=== PATIENT | female | born 1955 | race Caucasian/White ===

== ENCOUNTER 2016-12-27 06:42 | Inpatient (IN) ==
[2016-12-27] MEDS ORDERED: Acetaminophen 325 MG TABLET PO PRN (10:24)
[2016-12-27] MEDS ORDERED: Naloxone 0.4 MG/ML INJ IVP PRN (10:24)
[2016-12-27] MEDS ORDERED: Dextrose Gel 15 GM PO PRN ×2 (11:36)
[2016-12-27] MEDS ORDERED: *HR* Dextrose 50 % in Water (Syg) 50 ML SYRINGE IVP PRN (11:36)
[2016-12-27] MEDS ORDERED: D5% in Water 1,000 ML IVC PRN (11:36)
--- NOTE | 2016-12-27 11:58 | Internal Med History&Physical ---
Date of Encounter: 12/27/16 Time of Encounter: 11:55 Assessment and Plan (1) Closed left hip fracture Current visit: Yes Status: Acute Patient had mechanical fall at home and reported left hip pain. CT from [facility] shows nondisplaced intertrochanteric fracture of left hip, no dislocation. Orthopedic surgery consulted, Dr. Peace to see patient and plans surgery this evening EKG and CXR for pre-op clearance. IV Morphine PRN for pain Zofran PRN for nausea Narcan PRN for respiratory depression. Qualifiers: Encounter type: initial encounter Qualified Code(s): S72.002A - Fracture of unspecified part of neck of left femur, initial encounter for closed fracture (2) Type 2 diabetes mellitus Current visit: Yes Status: Acute Check Hgb A1c Hold Tradjenta and metformin Check blood sugars Q6hr Hold her home dose of basal insulin tonight, and start it tomorrow once taking PO. (home dose is 30u HS) Sliding scale correction dose Q6hr hypoglycemic protocol. Qualifiers: Diabetes mellitus complication status: with neurologic complications Diabetes mellitus complication detail: with polyneuropathy Diabetes mellitus [facility] insulin use: with [facility] use Qualified Code(s): E11.42 - Type 2 diabetes mellitus with diabetic polyneuropathy; Z79.4 - intermediate frame tender (current) use of insulin (3) COPD (chronic obstructive pulmonary disease) Current visit: No Status: Chronic Patient with COPD. Long smoking history. Scattered mild wheezes on exam, patient not reporting any increased shortness of breath or cough budesonide/formoterol BID Spriva daily. duonebs QID Albuterol nebulizer Q2hr PRN titrate O2 to maintain saturation > 90% Qualifiers: COPD type: chronic bronchitis Chronic bronchitis type: simple Qualified Code(s): J41.0 - Simple chronic bronchitis (4) Smoker Current visit: Yes Status: Acute Patient continues to smoke approximately 3PPD despite COPD diagnosis. Discussed smoking cessation, patient not ready to quit. Smoking cessation education ordered. Nicotine patch. (5) DVT prophylaxis Current visit: No Status: Acute Sequential compression devices Heparin 5000u SQ TID Internal Medicine - H&P: HPI Chief complaint: left hip pain s/p fall Admitted From: Hospital to Hospital Transfer Plans for Post Hospital Care: Home History of present illness: Ms. Linares is a 61 year old female with type 2 diabetes, , Charcot foot, was transferred from [facility] [place] this morning after suffering a fall at home and complaining of left hip pain. Patient reports that she was trying to keep her dogs out of the bedroom and tripped over her own feet and fell on her left side. CT of the pelvis done at [facility] showed a nondisplaced intertrochanteric fracture of the left hip with no dislocation. Patient had previous orthopedic surgeries here and requested to be transferred to [facility]. Patient denies any lightheadedness, headache, syncopal event prior to fall, or currently. Patient denies any chest pain, shortness of breath, nausea , abdominal pain, diarrhea, increased numbness or tingling. On exam, patient drowsy but arousable. Heart had regular rate and rhythm. Lungs had mild scattered wheezes. Left foot was externally rotated rotated and deformed consistent with Charcot foot. She did have tenderness to her left hip on exam. Peripheral pulses were intact. Past Med Surg Social Fam HX - Past Medical History Medical history: arthritis, asthma, COPD, diabetes, hyperlipidemia, migraine, myocardial infarction Psychiatric history: no psych history - Past Surgical History Surgical History: appendectomy, cholecystectomy, knee replacement, other - Social History Smoking Status: Current every day smoker Packs per day: 2-3 Smokeless Tobacco Status: No Alcohol use: none Drug use: none - Family History Mother Living Status: Age at : 60 Cause of : Cancer Hx Family Cardiac Disorders: Yes Hx Family Respiratory Disorders: No Hx Family Cancer: Yes Hx Family GI Disorders: No Hx Family Endocrine Disorder: No Hx Family Neuromuscular Disorders: No Hx Family Neurologic Disorders: No Hx Family HEENT Disorders: No Hx Family Autoimmune Disorders: No Father Living Status: Cause of : [place] Hx Family Cardiac Disorders: Yes Internal Medicine - H&P: Meds Gabapentin [Neurontin] 800 mg PO TID 06/21/15 [History] Insulin Glargine [Lantus] 20 unit SQ HS 06/21/15 [History] Linagliptin [Tradjenta] 5 mg PO DAILY 06/21/15 [History] Metformin [Glucophage] 1,000 mg PO BID 06/21/15 [History] Tiotropium [Spiriva] 1 cap IH DAILY 06/21/15 [History] Aspirin Enteric Coated [Aspirin EC] 325 mg PO BID #60 tablet. 04/12/16 [Rx] Simvastatin [Zocor] 40 mg PO DAILY 04/12/16 [History] Albuterol Sulfate [Ventolin Hfa] 2 puff IH Q6H PRN 12/27/16 [History] Alendronate Sodium [Fosamax] 70 mg PO QWEEK 12/27/16 [History] Calcium Carbonate/Vitamin D3 [Calcium 500-Vit D3 200 Tablet] 1 tab PO BID [History] Fluticasone/Salmeterol [Advair 250-50 Diskus] 1 puff IH BID 12/27/16 [History] Allergies hydrocodone [From Vicodin] Adverse Reaction (Verified 04/12/16 09:53) Nausea All Systems PM: A 10-system review of systems was performed and is negative for pertinent findings except as documented above in the HPI. - Constitutional Constitutional: falls, no chills, no fever(s), no night sweats - EENT Eyes: no change in vision, no discharge, no pain, no photophobia Ears: no ear discharge, no ear pain, no tinnitus Nose, mouth and throat: no dysphagia, no nasal discharge, no neck pain, no sore throat - Cardiovascular Cardiovascular ROS IM: no chest pain, no diaphoresis, no dyspnea, no lightheadedness, no palpitations, no syncope - Respiratory Respiratory: no cough, no dyspnea, no wheezing, no excessive phlegm production - Gastrointestinal Gastrointestinal: no abdominal pain, no diarrhea, no hematemesis, no hematochezia, no melena, no nausea, no vomiting - Genitourinary Genitourinary: no change in urinary stream, no dysuria, no flank pain, no hematuria - Musculoskeletal Musculoskeletal ROS IM: deformity (left foot charcot), no numbness, no tingling Additional comments: pain in left hip - Integumentary Integumentary IM: no rash, no unusual bruising - Neurological Neurological ROS: no confusion, no convulsions, no focal weakness, no numbness, no tingling, no tremor(s) - Hematologic/Lymphatic Hematologic/Lymphatic: no easy bruising - Constitutional Vitals: Temp Pulse Resp BP Pulse Ox 98.7 F 90 20 121/71 94 12/27/16 10:15 12/27/16 10:15 12/27/16 10:15 12/27/16 10:15 12/27/16 10:16 General appearance: Present: A&O X 3, pleasant, no acute distress - Head Head exam: Present: atraumatic, normocephalic - Eye Eye exam: Present: PERRL, conjuntiva pink, sclera anicteric Pupils: Present: PERRL - Neck Neck exam general surgery: Present: supple, trachea midline. Absent: lymphadenopathy - Respiratory Respiratory exam: Present: wheezes. Absent: accessory muscle use, rales, rhonchi - Cardiovascular Cardiovascular exam: Present: RRR, +S1, +S2. Absent: diastolic murmur, gallop, rubs, systolic murmur - GI/Abdominal GI/Abdominal exam: Present: normal bowel sounds, soft, no peritoneal signs. Absent: distended, tenderness - Extremities Exam Extremities exam: Present: normal capillary refill, warm, radial pulses palpable and symetrical. Absent: calf tenderness, cyanotic, pedal edema Additional comments: Left foot externally rotated and deformed consistent with charcot foot. Tenderness of left hip. - Neurological Exam Neurological exam: Present: CN II-XII intact, oriented X3, no focal deficits. Absent: facial droop, speech deficit - Skin Skin exam: Present: dry, intact Internal Med - H&P Results - Labs Labs: Labs from [facility]: Hgb 14.9 Hct 43.1 WBC 10.5 PLt 201 Na 139 K 3.8 Cl 104 CO2 24 BUN 14 Cr 0.51 Glu 150 - Diagnostic Studies CT scan - pelvis Additional comments: CT of pelvis from [facility]: Impression: nondisplaced intertrochanteric fracture of left hip. No dislocation. Other Images Additional comments: Xray of pelvis and left hip from [facility]: Osteopenia, mild degenerative changes of both hips, no acute osseous injury.
[2016-12-27] MEDS ORDERED: Albuterol 2.5 MG/3 ML NEBULIZER IH PRN (12:17)
[2016-12-27] MEDS: Insulin LISPRO 300 UNITS/3 ML VIAL SQ SCH ×2 (12:38→18:50)
[2016-12-27] MEDS: Nicotine 21 MG PATCH.TD24 TD SCH (12:39)
--- NOTE | 2016-12-27 14:42 | Orthopedic Consult Note ---
Date of Encounter: 12/27/16 Time of Encounter: 14:40 Assessment and Plan (1) Hip fracture Current Visit: Yes Status: Acute I did discuss the diagnosis in great detail with the patient. She has a nondisplaced left basicervical femoral neck fracture. I did discuss treatment options and my recommendation was for internal fixation to stabilize the hip and allow for pain control, and to help facilitate nursing care. The risks discussed included but were not limited to stiffness, bleeding, infection, blood clots, damage to neurovascular structures, tendons, ligaments, and bone. Also discussed was the risk of continued symptoms and possible need for further procedures. I did discuss the anesthesia risks including stroke, heart attack, and . I also discussed the risk of malunion, nonunion, hardware failure, fracture at the distal portion of the implant, and the need for hardware removal. I also discussed the reasonable, foreseeable postoperative course with the patient. I explained this to the patient in simple terms and she wished to proceed and consent was obtained. We will plan on surgery later today pending medical clearance. Qualifiers: Qualified Code(s): S72.009A - Fracture of unspecified part of neck of unspecified femur, initial encounter for closed fracture History of Present Illness HPI: Ms. Linares is a 61 year old female with a history of diabetes and neuropathy and Charcot foot on the left. She also has COPD and coronary artery disease. She does have a history of a left tibial shaft fracture last winter which was managed nonoperatively in a cast and the patient had done reasonably well from this. Currently she is an unassisted community ambulator and lives independently with her boyfriend. Last night at about 2 in the morning she sustained a fall onto her left hip which was non-syncopal in nature. She said she lost her balance and fell. She was seen at [facility] where the diagnosis of a left hip fracture was made and the patient was transferred to our facility for definitive management. She complains of isolated pain to the left hip and groin region. She denies any headaches, neck pain, chest pain, abdominal pain, loss of consciousness, and she also denies bilateral upper extremity and right lower extremity pain. She denies any new numbness, tingling , or any other associated signs or symptoms. She does endorse her baseline diabetic neuropathy. Pain is worse with movement of the left leg and better at rest. No other modifying factors. Past Med Surg Social Fam HX - Past Medical History Medical history: arthritis, asthma, COPD, diabetes, hyperlipidemia, migraine, myocardial infarction Psychiatric history: no psych history - Past Surgical History Surgical History: appendectomy, cholecystectomy, knee replacement, other - Social History Smoking Status: Current every day smoker Packs per day: 2-3 Smokeless Tobacco Status: No Alcohol use: none Drug use: none - Family History Father Living Status: Cause of : [place] Hx Family Cardiac Disorders: Yes Mother Living Status: Age at : 60 Cause of : Cancer Hx Family Cardiac Disorders: Yes Hx Family Respiratory Disorders: No Hx Family Cancer: Yes Hx Family GI Disorders: No Hx Family Endocrine Disorder: No Hx Family Neuromuscular Disorders: No Hx Family Neurologic Disorders: No Hx Family HEENT Disorders: No Hx Family Autoimmune Disorders: No Medications and Allergies Gabapentin [Neurontin] 800 mg PO TID 06/21/15 [History] Insulin Glargine [Lantus] 20 unit SQ HS 06/21/15 [History] Linagliptin [Tradjenta] 5 mg PO DAILY 06/21/15 [History] Metformin [Glucophage] 1,000 mg PO BID 06/21/15 [History] Tiotropium [Spiriva] 1 cap IH DAILY 06/21/15 [History] Aspirin Enteric Coated [Aspirin EC] 325 mg PO BID #60 tablet. 04/12/16 [Rx] Simvastatin [Zocor] 40 mg PO DAILY 04/12/16 [History] Albuterol Sulfate [Ventolin Hfa] 2 puff IH Q6H PRN 12/27/16 [History] Alendronate Sodium [Fosamax] 70 mg PO QWEEK 12/27/16 [History] Calcium Carbonate/Vitamin D3 [Calcium 500-Vit D3 200 Tablet] 1 tab PO BID [History] Fluticasone/Salmeterol [Advair 250-50 Diskus] 1 puff IH BID 12/27/16 [History] Allergies hydrocodone [From Vicodin] Adverse Reaction (Verified 04/12/16 09:53) Nausea All Systems Reviewed: Constitutional and musculoskeletal systems were reviewed and are negative unless otherwise stated in history of present illness. Physical Exam - Constitutional Vitals: Temp Pulse Resp BP Pulse Ox 98.7 F 90 20 121/71 94 12/27/16 10:15 12/27/16 10:15 12/27/16 10:15 12/27/16 10:15 12/27/16 10:16 Constitutional -Vitals reviewed -The patient is well developed and well nourished. -Mood is pleasant. -The patient is well groomed. Psychiatric -The patient is fully alert and oriented x 3. Respiratory: -Respiratory effort normal Abdomen: -Soft abdomen -Non tender -Non distended: Left upper extremity: -No deformities. The overlying skin is intact. No obvious signs of acute trauma. -No tenderness to palpation throughout. -No significant pain with passive motion of the shoulder, elbow, wrist, and fingers within the limits of the bed. -Able to make an "OK" sign, cross the index and long fingers, and extend the thumb. -Sensation grossly intact to light touch throughout the median, radial, and ulnar distributions. -Radial pulse is present; Fingers have good capillary refill. Right upper extremity: -No deformities. The overlying skin is intact. No obvious signs of acute trauma. -No tenderness to palpation throughout. -No significant pain with passive motion of the shoulder, elbow, wrist, and fingers within the limits of the bed. -Able to make an "OK" sign, cross the index and long fingers, and extend the thumb. -Sensation grossly intact to light touch throughout the median, radial, and ulnar distributions. -Radial pulse is present; Fingers have good capillary refill. Left lower extremity: -No deformities. The overlying skin is intact. No obvious signs of acute trauma. -Tenderness over the proximal thigh and left groin region. -No tenderness over the distal thigh, knee, tib-fib, ankle, or toes. -No pain with passive motion of knee, ankle, and toes within the limits of the bed. -Any movement of the left thigh does cause significant groin pain. -Able to dorsiflex and plantarflex the ankle and toes. -Sensation loss over the left foot consistent with her diabetic neuropathy. -Toes have good capillary refill. Right lower extremity: -No deformities. The overlying skin is intact. No obvious signs of acute trauma. -No tenderness to palpation throughout. -No pain with passive motion of the hip, knee, ankle, and toes within the limits of the bed. -No pain with axial loading of the thigh. -Able to dorsiflex and plantarflex the ankle and toes. -Sensation loss over the left foot consistent with her diabetic neuropathy. -Toes have good capillary refill. Diagnostic Imaging: I did personally review and interpret x-rays of the left hip which do not show any definite fractures. CT scan of the left hip did show a nondisplaced basicervical femoral neck fracture. I did review x-rays of the left knee show a total knee implant in good position. X-rays of the tibia show that her nondisplaced fracture has healed nicely. Her Charcot ankle has been redemonstrated. Results - Labs Labs: Abnormal lab results POC Glucose 129 (58-89) H 12/27/16 12:38 Hemoglobin A1c 6.0 % (-5.6) H 12/27/16 12:12 All other labs normal. Consult Discharge Plan - Plan Referrals: Luis Eduardo Petit, CHANGE ANALYST [Primary Care Provider] -
--- NOTE | 2016-12-27 14:44 | Anesthesia Evaluation PreOp ---
<Concha Bains - Last Filed: 12/27/16 14:41> Date of Encounter: 12/27/16 Time of Encounter: 14:41 - Past History Planned Operation: L-Hip IM Nailing Cardiac History: Hyperlipidemia (maintained on Simvastatin), Other (06/18/2015 - LVEF >70%) Pulmonary History: Smoker (3ppd x 40yrs despite COPD diagnosis), Asthma, COPD ( maintained on Albuterol, Budesonide/Formoterol, DuoNebs, Advair) LEAD FRONT DESK AGENT History: Other (Diabetic Polyneuropathy managed on Gabapentin, Roxicodone) Other Medical History: Diabetes Type II (maintained on Spiriva, TRadjenta, Glucophage, Lantus), Other (Charcot Foot.) Anesthesia History: No Prior Anesthetic Complications, Past Anesthesia (Appy, Corinne, Knee replacement) Alcohol Use: none Drug use: none Medications and Allergies Gabapentin [Neurontin] 800 mg PO TID 06/21/15 [History] Insulin Glargine [Lantus] 20 unit SQ HS 06/21/15 [History] Linagliptin [Tradjenta] 5 mg PO DAILY 06/21/15 [History] Metformin [Glucophage] 1,000 mg PO BID 06/21/15 [History] Tiotropium [Spiriva] 1 cap IH DAILY 06/21/15 [History] Aspirin Enteric Coated [Aspirin EC] 325 mg PO BID #60 tablet. 04/12/16 [Rx] Simvastatin [Zocor] 40 mg PO DAILY 04/12/16 [History] Albuterol Sulfate [Ventolin Hfa] 2 puff IH Q6H PRN 12/27/16 [History] Alendronate Sodium [Fosamax] 70 mg PO QWEEK 12/27/16 [History] Calcium Carbonate/Vitamin D3 [Calcium 500-Vit D3 200 Tablet] 1 tab PO BID [History] Fluticasone/Salmeterol [Advair 250-50 Diskus] 1 puff IH BID 12/27/16 [History] Allergies hydrocodone [From Vicodin] Adverse Reaction (Verified 04/12/16 09:53) Nausea - Meds/Allergy Pre-op Review Medications Reviewed: Yes Allergies Reviewed: Yes Beta Blockers on Current Med List: No Anesthesia Results - Labs Laboratory Tests 12/27/16 12/27/16 12:12 12:38 POC Glucose 129 H Est Mean Plasma Glucose 126 Hemoglobin A1c 6.0 H Anesthesia Exam Vital Signs Temp Pulse Resp BP Pulse Ox 12/27/16 10:16 94 12/27/16 10:15 98.7 F 90 20 121/71 95 Intake and Output 12/26/16 12/27/16 12/27/16 23:59 07:59 15:59 Output Total 1250 / 1250 Balance -1250 / -1250 Output: Catheter 1250 / 1250 Other: Weight 87.8 kg Blood Glucose* 129 Patient Weight 12/27/16 23:59 Weight 87.8 kg - HEENT Pupil (Motor): Pupils equal, EOMI Oral Opening: Greater than 3 - LEAD [employer]ONT DESK AGENT LOC: Oriented LEAD [employer] DESK AGENT Motor: Normal RUE, Normal LUE, Normal RLE, Normal LLE, Normal Face LE[employer] DESK [employer]ENT Sensory: Normal: RUE, LUE, RLE, LLE, Face - Cardiac Rhythm: Regular Murmur: None - Pulmonary Breath Sounds: bilateral Clear Respiratory Effort: Symmetrical Anesthesia Assess/Plan ASA Score: 3 (COPD, Smoker, DM, Chol) Modified [place] Scale for Level of Consciousness: Cooperative, oriented, and tranquil Anesthetic Plan: General Monitoring Plan: Standard Monitors Recovery Plan: PACU <Graeme Abdullahi - Last Filed: 12/27/16 15:53> Date of Encounter: 12/27/16 - Past History : No Anesthesia Results - Imaging EKG: image reviewed (SR, poss inf SC) Anesthesia Exam Height: 5'5'' Weight: 193# NPO (# of Hours): > 8 hrs Pain Scale: 0 Pain Scale Used: Numeric (1 - 10) - HEENT Pupil (Motor): Pupils equal, EOMI Mallampati: II Teeth: Missing Denture Type: Upper: Complete - LEAD FRONT DESK AGENT LEAD FRONT DESK AGENT Motor: Normal RUE, Normal LUE, Normal RLE, Normal LLE, Normal Face LE[employer] FR[employer] DESK AGENT Sensory: Normal: RUE, LUE, RLE, LLE, Face - Cardiac JVD: No Carotid Bruit: No - Pulmonary Breath Sounds: bilateral Clear Respiratory Effort: Symmetrical
[2016-12-27] MEDS ORDERED: *HR* FentaNYL (PF) 100 MCG/2 ML VIAL ONE (15:42)
[2016-12-27] MEDS ORDERED: *HR* Propofol 200 MG/20 ML VIAL IVP ONE (15:43)
[2016-12-27] MEDS ORDERED: *HR* Heparin 5,000 UNIT/ML VIAL SQ SCH (16:00)
[2016-12-27] MEDS ORDERED: Lidocaine -MPF 4% 5 ML AMPUL ONE (16:05)
[2016-12-27] MEDS ORDERED: *HR* Succinylcholine 200 MG/10 ML VIAL IVP ONE (16:05)
[2016-12-27] MEDS: Ipratropium/Albuterol Neb 3 ML IH SCH ×2 (16:29→23:07)
[2016-12-27] MEDS ORDERED: Ondansetron 4 MG/2 ML VIAL IVP PRN (16:47)
[2016-12-27] MEDS ORDERED: Ondansetron 4 MG/2 ML VIAL ONE (16:51)
[2016-12-27] MEDS ORDERED: Dexamethasone 4 MG/ML VIAL ONE (16:51)
[2016-12-27] MEDS ORDERED: *HR* HYDROmorphone 2 MG/ML SYRINGE ONE (16:56)
[2016-12-27] MEDS ORDERED: Albuterol 2.5 MG/3 ML NEBULIZER IH ONE (17:54)
[2016-12-27] MEDS: *HR* HYDROmorphone (PF) 1 MG/ML SYRINGE IVP PRN ×2 (18:01→18:11)
--- NOTE | 2016-12-27 18:26 | Anesthesia Evaluation Post Op ---
Date of Encounter: 12/27/16 Time of Encounter: 18:25 - Vital Signs Vital Signs: Vital Signs/O2 Sat, Most Current Temp Pulse Resp BP Pulse Ox 98.2 F 97 18 129/62 97 12/27/16 18:10 12/27/16 18:20 12/27/16 18:20 12/27/16 18:20 12/27/16 18:20 - Lungs Lungs: Clear Ascult./Percussion - Airway Airway: Non-obstructed - Cardiovascular Regular Rate - Mental Status Mental Status: Alert & Oriented, Answers Appropriately - Pain Pain Scale: 0 Pain Scale used: Numeric (1 - 10) - Nausea Vomiting Nausea Vomiting: Not Present - Hydration Hydration: NPO, Montoya catheter - Discharge PostOp Status: Transfer Patient to floor
[2016-12-27] MEDS: Aspirin Enteric Coated 325 MG Tablet PO SCH (19:58)
[2016-12-27] MEDS: *HR* Morphine 2 MG/ML SYRINGE IVP PRN (20:00)
[2016-12-27] MEDS ORDERED: Insulin LISPRO 300 UNITS/3 ML VIAL SQ SCH (21:00)
[2016-12-27] MEDS ORDERED: Insulin DETEMIR 100 UNIT/ML X5UNITS SQ SCH (21:00)
--- NOTE | 2016-12-27 22:32 | Orthopedic Operative Note ---
Date of procedure: 12/27/16 Procedure: OPERATIVE REPORT DATE OF PROCEDURE: 12/27/2016 SURGEON: Dionisio Peace MD POLICE PATROL LIEUTENANT(S): There are no assistants PREOPERATIVE DIAGNOSIS: Left basicervical femoral neck fracture POSTOPERATIVE DIAGNOSIS: Left basicervical femoral neck fracture PROCEDURE: Internal fixation of the left hip with medullary nail ANESTHESIA: Gen. anesthesia PREOPERATIVE ANTIBIOTICS: 2 g of Ancef ESTIMATED BLOOD LOSS: 100 milliliters IMPLANTS: Karen Gamma 3 125 degree by 11 mm by 180 mm nail with a 90 mm lag screw. PREOPERATIVE NOTE AND INDICATIONS: Kylie is a 61-year-old female who sustained a fall earlier today and was transferred to our facility after being found to have a nondisplaced basicervical femoral neck fracture. Treatment options were discussed and the recommendation was for internal fixation in order to stabilize the left hip. The surgical plan was discussed with the patient. The risks, benefits, alternatives, and potential complications of this procedure were discussed with the patient including injury to veins, arteries, nerves, tendons, ligaments, and bone. Also discussed were the risks of infection, bleeding, pain, blood clots, the possible need for a blood transfusion, the possible need for further procedures, heart attack, stroke, and . Additional risks include fracture at the distal portion of the stem, malunion, nonunion, and symptomatic hardware. All of this was explained in simple terms, and the patient verbalized understanding and wished to proceed. Consent was given to proceed with surgery. PROCEDURE: The patient was seen in the preoperative holding area where the identify and the consent were confirmed. The left hip was marked. Final questions were answered. The patient was brought back to the operating room. A huddle was performed with the patient and all vital surgical team members confirming patient identity, the correct procedure, and the correct operative site. General anesthesia was administered. The patient was placed on the traction table where the nonoperative extremity was flexed, abducted, and held out of the way. The left lower extremity was placed in the traction boot without any traction. X-rays confirmed no displacement. The left thigh was prepped and draped in the usual sterile fashion. A surgical time out was performed immediately preceding the incision with all personnel in the operating room to confirm patient identity, the correct operative site and extremity, correct radiographic studies, availability of appropriate surgical equipment, and agreement on the planned procedure. A small longitudinal incision was made proximal to the greater trochanter and dissection proceeded through the subcutaneous tissue and gluteal fascia. The starting pin was placed in the proximal femur followed by the opening reamer. The definitive short nail was then placed into the medullary canal and using a triple sleeve, a small lateral incision was made and the guidewire was driven into the femoral head. X-rays confirmed good position and a measurement of length was made. The femoral neck and head was reamed and the definitive 90 mm lag screw was placed uneventfully. No displacement of the fracture occurred. This was secured in dynamic fashion. Using a triple sleeve a third small lateral incision was made and using a drill bit a distal interlocking screw was drilled in static mode and the definitive screw placed. The jigs were taken off , and x-rays confirmed good placement of the hardware without any fracture displacement. The wounds were copiously irrigated and the deep layer was closed with 0 Vicryl stitches followed by the skin with 3-0 Vicryl and cheyanne. Sterile dressings were placed and the patient was taken down from the traction table having tolerated the procedure well. The instrument, sponge, and needle counts were correct after wound closure. POST OPERATIVE PLAN: Weight Bearing: Weightbearing as tolerated DVT Prophylaxis: Aspirin 325 mg by mouth twice a day Activity: As tolerated with assistance Wound Care: Daily dressing changes on postoperative day 2 Perioperative antibiotic prophylaxis: 2 doses of Ancef Social work for discharge planning Follow Up: 2 weeks
[2016-12-27] MEDS: Budesonide/Formoterol 160/4.5 MDI IH SCH (23:06)
[2016-12-27] MEDS: *HR* OxyCODONE Immed Rel 5 MG TABLET PO PRN (23:38)
[2016-12-27] MEDS: ceFAZolin 2,000 MG in D5% in Water 100 ML IVPB SCH (23:44)
[2016-12-28] MEDS: Ipratropium/Albuterol Neb 3 ML IH SCH ×4 (04:44→21:48)
[2016-12-28] MEDS: *HR* Morphine 2 MG/ML SYRINGE IVP PRN ×2 (04:46→09:01)
[2016-12-28 05:50] LABS: Basophils % 0.2 %; Hematocrit 39.5 % (35.3-44.9); Hemoglobin 13.5 g/dL (11.5-15.4); Immature Granulocytes % 0.8 % (0-4); Lymphocytes # 1.4 K/mcL (0.6-4.6); Lymphocytes % 13.8 %; Mean Corpuscular HGB Conc 34.2 g/dL (31.6-35.5); Mean Corpuscular Hemoglobin 30.3 pg (28.0-33.3); Mean Corpuscular Volume 88.6 fL (83.0-100.0); Monocytes # 0.7 K/mcL (0.0-1.3); Monocytes % 6.5 %; Neutrophils # 8.1 K/mcL (1.6-8.9); Platelet Count 176 K/mcL (140-400); Red Blood Count 4.46 M/mcL (3.82-4.97); Red Cell Distribution Width 12.8 % (11.5-14.5); Segmented Neutrophils % 78.7 %
[2016-12-28 06:07] LABS: BUN/Creatinine Ratio 15 (6-26); Blood Urea Nitrogen 11 mg/dL (7-20); Calcium 8.7 mg/dL (8.6-10.8); Carbon Dioxide 23 mEq/L (19-29); Chloride 104 mEq/L (98-109); Glucose 348 mg/dL (70-99); Osmolality,Calculated 297 (280-300); Potassium 3.8 mEq/L (3.5-4.5); Sodium 137 mEq/L (136-145); eGFR For African Americans > 60 (> 60); eGFR For Non-African Americans > 60 (> 60)
[2016-12-28] MEDS ORDERED: Insulin LISPRO 300 UNITS/3 ML VIAL SQ SCH ×2 (07:30→21:00)
[2016-12-28] MEDS: ceFAZolin 2,000 MG in D5% in Water 100 ML IVPB SCH (07:52)
[2016-12-28] MEDS: Aspirin Enteric Coated 325 MG Tablet PO SCH ×2 (07:52→20:43)
[2016-12-28] MEDS: Gabapentin 400 MG CAPSULE PO SCH ×3 (07:52→20:43)
[2016-12-28] MEDS: *HR* OxyCODONE Immed Rel 5 MG TABLET PO PRN ×4 (07:52→22:25)
[2016-12-28] MEDS: Nicotine 21 MG PATCH.TD24 TD SCH (07:53)
[2016-12-28] MEDS: Insulin DETEMIR 100 UNIT/ML X5UNITS SQ SCH ×2 (09:01→20:46)
[2016-12-28] MEDS ORDERED: Budesonide/Formoterol 80/4.5 MDI IH SCH (10:00)
[2016-12-28] MEDS: Budesonide/Formoterol 160/4.5 MDI IH SCH ×2 (10:48→20:25)
[2016-12-28] MEDS: Tiotropium 18 MCG inhalation IH SCH (10:49)
[2016-12-28] MEDS: Insulin LISPRO 300 UNITS/3 ML VIAL SQ SCH ×2 (11:24→16:36)
--- NOTE | 2016-12-28 13:13 | Internal Med Progress Note ---
Date of Encounter: 12/28/16 Time of Encounter: 13:10 - Assessment and plan (1) Closed left hip fracture Current Visit: Yes Status: Acute Assessment and plan: s/p mechanical fall. Orthopedic surgery consult and f/up appreciated. Patient underwent intramedullary nail fixation of left hip, POD 1. Pain control with PRN Percocet and IV Morphine. WBAT. PT evaluation noted, recommend ECF placement , however patient would like to be discharged home when stable. Supportive care. DVT prophylaxis with high dose ASA BID. Qualifiers: Encounter type: initial encounter Qualified Code(s): S72.002A - Fracture of unspecified part of neck of left femur, initial encounter for closed fracture (2) Type 2 diabetes mellitus Current Visit: Yes Status: Chronic Assessment and plan: Accucheck blood glucose monitoring shows elevated blood sugars; will increase basal insulin and sliding scale insulin regimen. Diabetic diet. HbA1C noted to be 6%. Qualifiers: Diabetes mellitus complication status: with neurologic complications Diabetes mellitus complication detail: with polyneuropathy Diabetes mellitus custodial insulin use: with long term care phlebotomist use Qualified Code(s): E11.42 - Type 2 diabetes mellitus with diabetic polyneuropathy; Z79.4 - [facility] (current) use of insulin (3) Tobacco abuse Current Visit: Yes Status: Chronic Assessment and plan: continue Nicotine transdermal patch (4) CAD (coronary artery disease) Current Visit: Yes Status: Chronic Assessment and plan: continue ASA and statin; lost to outpatient f/up. Qualifiers: Coronary Disease-Associated Artery/Lesion type: [place] artery [place] vs. transplanted heart: [place] heart Associated angina: without angina Qualified Code(s): I25.10 - Atherosclerotic heart disease of [place] coronary artery without angina pectoris (5) COPD (chronic obstructive pulmonary disease) Current Visit: Yes Status: Chronic Assessment and plan: not in acute exacerbation. Continue PRN bronchodilators and supplemental O2. Qualifiers: COPD type: chronic bronchitis Chronic bronchitis type: simple Qualified Code(s): J41.0 - Simple chronic bronchitis - Subjective Interval history: Reports left hip pain, controlled with pain meds; able to participate with PT today. No nausea, vomiting, diarrhea; insists on being discharged home and declines ECF placement; - Constitutional Vitals: Temp Pulse Resp BP Pulse Ox 98.5 F 108 16 120/65 95 12/28/16 11:15 12/28/16 11:15 12/28/16 11:15 12/28/16 11:15 12/28/16 11:15 General appearance: Present: A&O X 3, answers questions appropriately - Respiratory Respiratory exam: Present: CTAB. Absent: accessory muscle use, rales, rhonchi, wheezes - Cardiovascular Cardiovascular exam: Present: RRR, +S1, +S2, tachycardia. Absent: diastolic murmur, gallop, rubs, systolic murmur - GI/Abdominal GI/Abdominal exam: Present: normal bowel sounds, soft, no peritoneal signs. Absent: distended, tenderness - Extremities Exam Extremities exam: Present: full ROM (resticted at left hip), warm, radial pulses palpable and symetrical. Absent: calf tenderness, cyanotic, pedal edema Additional comments: left lateral proximal thigh- surgical dressing intact with mild surrounding edema and induration Internal Medicine: Result - Labs CBC & Chem 7: 12/28/16 05:08 12/28/16 05:08 Labs: Short CBC 12/28/16 Range/Units 05:08 WBC 10.2 (4.3-11.1) K/mcL Hgb 13.5 (11.5-15.4) g/dL Hct 39.5 (35.3-44.9) % Plt Count 176 (140-400) K/mcL Neutrophils # 8.1 (1.6-8.9) K/mcL BMP 12/28/16 05:08 Sodium 137 Potassium 3.8 Chloride 104 Carbon Dioxide 23 BUN 11 Creatinine 0.72 Glucose 348 H Calcium 8.7 - Impressions Impressions Tibia/Fibula X-Ray 12/27/16 14:14 IMPRESSION: 1. No acute findings in the left leg. 2. Small left suprapatellar effusion. 3. Unchanged left total knee arthroplasty without complication. 4. Bony demineralization. 5. Diffuse edema. D/ / Keith Chen MD / Keith Chen MD Interpreting Provider: Keith Chen MD Fluoroscopy 12/27/16 16:26 IMPRESSION: Intraprocedural fluoroscopic spot images as above. See separate procedure report for more information. D/ / 12/27/2016 17:50:52 Isaías Canchola MD / jacinta Interpreting Provider: Isaías Canchola MD - VTE Documentation of Mechanical Device: Intermittent pneumatic compression device Consult Discharge Plan - Plan Referrals: Luis Eduardo Petit CNP [Primary Care Provider] -
--- NOTE | 2016-12-28 16:18 | Orthopedics Progress Note ---
Date of Encounter: 12/28/16 Time of Encounter: 16:12 - Assessment and Plan (1) Hip fracture Current Visit: Yes Status: Acute I did discuss the diagnosis in great detail with the patient. She has a nondisplaced left basicervical femoral neck fracture. I did discuss treatment options and my recommendation was for internal fixation to stabilize the hip and allow for pain control, and to help facilitate nursing care. The risks discussed included but were not limited to stiffness, bleeding, infection, blood clots, damage to neurovascular structures, tendons, ligaments, and bone. Also discussed was the risk of continued symptoms and possible need for further procedures. I did discuss the anesthesia risks including stroke, heart attack, and . I also discussed the risk of malunion, nonunion, hardware failure, fracture at the distal portion of the implant, and the need for hardware removal. I also discussed the reasonable, foreseeable postoperative course with the patient. I explained this to the patient in simple terms and she wished to proceed and consent was obtained. We will plan on surgery later today pending medical clearance. Qualifiers: Qualified Code(s): S72.009A - Fracture of unspecified part of neck of unspecified femur, initial encounter for closed fracture Subjective Interval history: S: Expected postoperative pain to the left hip. Meds take the edge off the pain. Has taken a few steps with therapy, and is currently up to the chair. O: Afev; VSS Left thigh dressing has minimal sanguinous drainage. It is otherwise dry and intact. Minimal pain with axial loading and log roll of the left hip. She is able to dorsiflex and plantar flex the ankle and toes. The foot is sensate and well-perfused. A: Postoperative day 1 after internal fixation of the left hip P: Pain currently controlled PT/OT WBAT B/L LE Dressing change tomorrow Montoya out today Aspirin 325 mg PO BID and Knee high GREGORY hose for DVT prophylaxis Patient desires home upon discharge Objective Vital signs: Vital Signs Temp Pulse Resp BP Pulse Ox 12/28/16 14:12 98.2 F 106 20 94/51 93 12/28/16 11:15 98.5 F 108 16 120/65 95 12/28/16 10:49 16 96 12/28/16 06:30 99.0 F 105 18 108/70 99 12/28/16 04:11 98.6 F 107 22 131/90 100 12/28/16 00:24 97.9 F 118 20 105/67 100 12/27/16 21:27 99.2 F 112 19 123/68 98 12/27/16 20:03 98.1 F 117 18 118/73 100 12/27/16 19:30 97.9 F 108 20 122/79 97 12/27/16 18:42 98.8 F 102 20 127/68 95 12/27/16 18:30 98.4 F 101 18 105/61 94 12/27/16 18:20 97 18 129/62 97 12/27/16 18:10 98.2 F 104 20 115/82 94 12/27/16 18:00 96 20 111/52 94 12/27/16 17:50 87 20 121/69 96 12/27/16 17:40 99.2 F 93 20 130/62 92 Intake and Output 12/28/16 12/28/16 12/28/16 07:59 15:59 23:59 Intake Total 100 / 100 360 / 360 Output Total 1850 / 1850 Balance -1750 / -1750 360 / 360 Intake: IV Fluids 100 / 100 Ancef 2,000 MG In 100 / 100 Dextrose 5% 100 ML @ 200 mls/hr IVPB Q8HR CAROL Rx#: [id number] Oral 360 / 360 Output: Catheter 1850 / 1850 Other: Meal Lunch Percent of Meal Consumed 50% # Voids 1 Blood Glucose* 351 271 - Labs CBC & BMP: 12/28/16 05:08 12/28/16 05:08 Labs: Abnormal lab results Glucose 348 mg/dL (70-99) H 12/28/16 05:08 POC Glucose 336 (58-89) H 12/27/16 20:43 Hemoglobin A1c 6.0 % (-5.6) H 12/27/16 12:12 - VTE Documentation of Mechanical Device: Intermittent pneumatic compression device Consult Discharge Plan - Plan Referrals: Luis Eduardo Petit BAG SEWER [Primary Care Provider] -
[2016-12-28] MEDS ORDERED: Insulin DETEMIR 100 UNIT/ML X5UNITS SQ SCH ×2 (21:00)
--- NOTE | 2016-12-28 21:08 | Electrocardiograph Report ---
[place] Attention Point Test Date: 2016-12-27 Pat Name: Kylie Linares Department: 114 Room: [facility] Gender: F Parasitology Teacher: JASS : 1955 Requested By: Catarina Chavarria Order Number: [id number] Reading MD: Alin Barnett MD Measurements Intervals [place] Rate: 88 P: 48 NC: 203 QRS: 32 QRSD: 95 T: 45 QT: 338 QTc: 384 Interpretive Statements SINUS RHYTHM WITH OCCASIONAL VENTRICULAR PREMATURE COMPLEXES Electronically Signed On 12-28-2016 21:06:27 EDT by Alin Barnett MD
--- NOTE | 2016-12-28 21:08 | Electrocardiograph Report ---
[place] [employer] Test Date: 2016-12-27 Pat Name: Kylie Linares Department: 114 Room: [facility] Gender: F [place] [employer] Supervisor: JASS : 1955 Requested By: Maria Isabel Ibarra Order Number: [id number] Reading MD: Alin Barnett MD Measurements Intervals [place] Rate: 89 P: 49 CA: 200 QRS: 41 QRSD: 97 T: 46 QT: 343 QTc: 389 Interpretive Statements SINUS RHYTHM WITH OCCASIONAL VENTRICULAR PREMATURE COMPLEXES Electronically Signed On 12-28-2016 21:06:39 EDT by Alin Barnett MD
[2016-12-29] MEDS: *HR* OxyCODONE Immed Rel 5 MG TABLET PO PRN ×3 (04:40→17:02)
[2016-12-29] MEDS: Ipratropium/Albuterol Neb 3 ML IH SCH ×4 (05:09→22:27)
[2016-12-29 05:24] LABS: Hematocrit 33.8 % (35.3-44.9)
[2016-12-29 05:44] LABS: Hemoglobin 11.5 g/dL (11.5-15.4)
[2016-12-29] MEDS: Insulin DETEMIR 100 UNIT/ML X5UNITS SQ SCH ×2 (08:27→21:24)
[2016-12-29] MEDS: Gabapentin 400 MG CAPSULE PO SCH ×3 (08:27→21:19)
[2016-12-29] MEDS: Aspirin Enteric Coated 325 MG Tablet PO SCH ×2 (08:27→21:19)
[2016-12-29] MEDS: Nicotine 21 MG PATCH.TD24 TD SCH (08:27)
[2016-12-29] MEDS: Insulin LISPRO 300 UNITS/3 ML VIAL SQ SCH ×3 (08:28→17:09)
--- NOTE | 2016-12-29 08:50 | Orthopedics Progress Note ---
Date of Encounter: 12/29/16 Time of Encounter: 08:48 - Assessment and Plan (1) Hip fracture Current Visit: Yes Status: Acute Qualifiers: Qualified Code(s): S72.009A - Fracture of unspecified part of neck of unspecified femur, initial encounter for closed fracture Subjective Interval history: S: No new complaints. Pain controlled. Has been able to put weight on the left hip. O: Afev; VSS Incision is clean, dry, and inact. Dressing changed. Minimal pain with axial loading and log roll of the left hip. She is able to dorsiflex and plantar flex the ankle and toes. The foot is sensate and well-perfused. A: Postoperative day 2 after internal fixation of the left hip P: Pain currently controlled PT/OT WBAT B/L LE Aspirin 325 mg PO BID and Knee high GREGORY hose for DVT prophylaxis Orthopedically stable for discharge. Patient desires home. Follow up with me in the office 2 weeks from surgery date. Objective Vital signs: Vital Signs Temp Pulse Resp BP Pulse Ox 12/29/16 07:07 97.8 F 99 18 107/62 94 12/28/16 23:38 98.8 F 103 16 106/68 94 12/28/16 20:25 16 92 12/28/16 17:55 98.5 F 106 18 115/68 95 12/28/16 14:12 98.2 F 106 20 94/51 93 12/28/16 11:15 98.5 F 108 16 120/65 95 12/28/16 10:49 16 96 Intake and Output 12/28/16 12/29/16 12/29/16 23:59 07:59 15:59 Intake Total 500 / 500 Output Total 450 / 450 400 / 400 Balance -450 / -450 100 / 100 Intake: Oral 500 / 500 Output: Urine 450 / 450 400 / 400 Other: Weight 88.1 kg Blood Glucose* 295 267 Patient Weight 12/29/16 23:59 Weight 88.1 kg - Labs CBC & BMP: 12/29/16 04:51 12/28/16 05:08 Labs: Abnormal lab results Hct 33.8 % (35.3-44.9) L 12/29/16 04:51 Glucose 348 mg/dL (70-99) H 12/28/16 05:08 POC Glucose 295 (58-89) H 12/28/16 20:03 Hemoglobin A1c 6.0 % (-5.6) H 12/27/16 12:12 - VTE Documentation of Mechanical Device: Graduated compression elastic hosiery Consult Discharge Plan - Plan Additional Instructions: DISCHARGE INSTRUCTIONS Dr. Peace PROCEDURE PERFORMED Fixation of left hip. Incision care -Daily dressing changes to the right hip with dry gauze and either paper tape or medipore tape. -Avoid soaking wound in water (no hot tubs, bathtubs, swimming pools). -May shower after 2 weeks from surgery date. Carefully wash incision with soap and water. Gently pat it dry. Don't rub the incision, or apply creams or lotions. Sit on a shower stool when showering to keep from falling. Weight bearing status -Weightbearing as tolerated to the bilateral lower extremities. Medications -Pain medication per the discharging medical doctor -Enteric coated aspirin 325 mg by mouth twice per day for 28 days from the date of the surgery. Other -Knee high GREGORY hose 23 hours per day -Consult physical and occupational therapy for ambulation. -Up to chair with assistance at least twice per day. -Follow up with your primary care physician to discuss testing for bone mineral density. Follow-up with Dr. Peace at the office 2 weeks from the surgery date for a post operative evaluation. Call the office at [phone] to schedule appointment. Referrals: Luis Eduardo Petit, FINE PATCHER [Primary Care Provider] -
[2016-12-29] MEDS: Budesonide/Formoterol 160/4.5 MDI IH SCH ×2 (10:52→20:26)
[2016-12-29] MEDS: Tiotropium 18 MCG inhalation IH SCH (10:52)
[2016-12-29] MEDS ORDERED: Insulin LISPRO 300 UNITS/3 ML VIAL SQ SCH (21:00)
[2016-12-30] MEDS: *HR* OxyCODONE Immed Rel 5 MG TABLET PO PRN ×4 (00:27→16:50)
[2016-12-30 03:52] LABS: Hematocrit 30.7 % (35.3-44.9); Hemoglobin 10.5 g/dL (11.5-15.4)
[2016-12-30] MEDS: Ipratropium/Albuterol Neb 3 ML IH SCH ×2 (04:19→10:33)
[2016-12-30] MEDS: Insulin LISPRO 300 UNITS/3 ML VIAL SQ SCH ×2 (08:28→12:18)
--- NOTE | 2016-12-30 08:28 | Internal Med Progress Note ---
Date of Encounter: 12/29/16 Time of Encounter: 12:40 - Assessment and plan (1) Closed left hip fracture Current Visit: Yes Status: Acute Assessment and plan: s/p mechanical fall. Orthopedic surgery consult and f/up appreciated. Patient underwent intramedullary nail fixation of left hip, POD 2. Pain control with PRN Percocet and IV Morphine. WBAT. PT evaluation noted, recommend ECF placement , however patient would like to be discharged home when stable. Supportive care. DVT prophylaxis with high dose ASA BID. Qualifiers: Encounter type: initial encounter Qualified Code(s): S72.002A - Fracture of unspecified part of neck of left femur, initial encounter for closed fracture (2) Type 2 diabetes mellitus Current Visit: Yes Status: Chronic Assessment and plan: Accucheck blood glucose monitoring shows elevated blood sugars; will increase basal insulin and sliding scale insulin regimen. Diabetic diet. HbA1C noted to be 6%. Qualifiers: Diabetes mellitus complication status: with neurologic complications Diabetes mellitus complication detail: with polyneuropathy Diabetes mellitus jail insulin use: with termite exterminator use Qualified Code(s): E11.42 - Type 2 diabetes mellitus with diabetic polyneuropathy; Z79.4 - [facility] (current) use of insulin (3) Tobacco abuse Current Visit: Yes Status: Chronic Assessment and plan: continue Nicotine transdermal patch (4) CAD (coronary artery disease) Current Visit: Yes Status: Chronic Qualifiers: Coronary Disease-Associated Artery/Lesion type: [place] artery [place] vs. transplanted heart: [place] heart Associated angina: without angina Qualified Code(s): I25.10 - Atherosclerotic heart disease of [place] coronary artery without angina pectoris (5) COPD (chronic obstructive pulmonary disease) Current Visit: Yes Status: Chronic Assessment and plan: not in acute exacerbation. Continue PRN bronchodilators and supplemental O2. Patient is noted to be hypoxic on room air, home oxygen evaluation was completed and patient is noted to require at least 3 L/m continuous oxygen via nasal cannula and she would benefit from portable home oxygen, she is noted to be mobile at home. She is also noted to be tachycardic since admission with baseline heart rate between 100 and 115. D-dimer was checked, noted to be significantly elevated. We will obtain CT angiogram of chest to rule out pulmonary embolism given significant hypoxemia and tachycardia. Qualifiers: COPD type: chronic bronchitis Chronic bronchitis type: simple Qualified Code(s): J41.0 - Simple chronic bronchitis - Subjective Interval history: Slightly drowsy from pain medications. Pain is controlled with IV pain medication, able to participate with physical therapy. No chest pain, shortness of breath, nausea reported. - Constitutional Vitals: Temp Pulse Resp BP Pulse Ox 97.6 F 89 16 114/68 97 12/30/16 06:47 12/30/16 06:47 12/30/16 06:47 12/30/16 06:47 12/30/16 06:47 General appearance: Present: A&O X 3 (Somnolent but arousable), answers questions appropriately - Respiratory Respiratory exam: Present: CTAB. Absent: accessory muscle use, rales, rhonchi, wheezes - Cardiovascular Cardiovascular exam: Present: RRR, +S1, +S2. Absent: diastolic murmur, gallop, rubs, systolic murmur - GI/Abdominal GI/Abdominal exam: Present: normal bowel sounds, soft, no peritoneal signs. Absent: distended, tenderness - Extremities Exam Extremities exam: Present: full ROM (Restricted at left hip. Proximal lateral femoral surgical site with dry dressing and surrounding edema and tenderness.), warm, radial pulses palpable and symetrical. Absent: calf tenderness, cyanotic , pedal edema Internal Medicine: Result - Labs CBC & Chem 7: 12/30/16 03:43 12/28/16 05:08 Labs: Short CBC 12/30/16 Range/Units 03:43 Hgb 10.5 L (11.5-15.4) g/dL Hct 30.7 L (35.3-44.9) % - ABG Interpretation ABG results: PT/INR, D-dimer D-Dimer 1479 ng/mLFEU (0-500) H 12/29/16 15:55 - Impressions Impressions Chest CTA 12/29/16 16:42 IMPRESSION: No evidence of a pulmonary embolus. Mild left greater than right dependent basilar airspace disease, likely postoperative atelectasis. Developing pneumonia is not excluded. Calcific coronary artery disease. D/ / Akash Hawkins MD / Akash Hawkins MD Interpreting Provider: Akash Hawkins MD - VTE Documentation of Mechanical Device: Intermittent pneumatic compression device Consult Discharge Plan - Plan Additional Instructions: DISCHARGE INSTRUCTIONS Dr. Peace PROCEDURE PERFORMED Fixation of left hip. Incision care -Daily dressing changes to the right hip with dry gauze and either paper tape or medipore tape. -Avoid soaking wound in water (no hot tubs, bathtubs, swimming pools). -May shower after 2 weeks from surgery date. Carefully wash incision with soap and water. Gently pat it dry. Don't rub the incision, or apply creams or lotions. Sit on a shower stool when showering to keep from falling. Weight bearing status -Weightbearing as tolerated to the bilateral lower extremities. Medications -Pain medication per the discharging medical doctor -Enteric coated aspirin 325 mg by mouth twice per day for 28 days from the date of the surgery. Other -Knee high GREGORY hose 23 hours per day -Consult physical and occupational therapy for ambulation. -Up to chair with assistance at least twice per day. -Follow up with your primary care physician to discuss testing for bone mineral density. Follow-up with Dr. Peace at the office 2 weeks from the surgery date for a post operative evaluation. Call the office at [phone] to schedule appointment. Referrals: Luis Eduardo Petit, COMPANY SECRETARY [Primary Care Provider] - Prescriptions: Insulin Glargine [Lantus] 35 unit SQ HS 30 Days OxyCODONE Immed Rel [Roxicodone 5 MG] 10 mg PO Q6H PRN #30 tablet PRN Reason: Pain
[2016-12-30] MEDS: Aspirin Enteric Coated 325 MG Tablet PO SCH (08:29)
[2016-12-30] MEDS: Insulin DETEMIR 100 UNIT/ML X5UNITS SQ SCH (08:29)
[2016-12-30] MEDS: Gabapentin 400 MG CAPSULE PO SCH ×2 (08:29→14:41)
[2016-12-30] MEDS: Nicotine 21 MG PATCH.TD24 TD SCH (08:29)
[2016-12-30] MEDS: Tiotropium 18 MCG inhalation IH SCH (10:30)
[2016-12-30] MEDS: Budesonide/Formoterol 160/4.5 MDI IH SCH (10:30)
[2016-12-30 11:14] VITALS: BP 101/63
--- NOTE | 2016-12-30 13:25 | Discharge Summary ---
Date of Encounter: 12/30/16 Time of Encounter: 13:20 - Discharge Diagnosis (1) Closed left hip fracture Priority: Primary Status: Acute Qualifiers: Encounter type: initial encounter Qualified Code(s): S72.002A - Fracture of unspecified part of neck of left femur, initial encounter for closed fracture (2) Type 2 diabetes mellitus Priority: Secondary Status: Chronic Qualifiers: Diabetes mellitus complication status: with neurologic complications Diabetes mellitus complication detail: with polyneuropathy Diabetes mellitus terminal gauger insulin use: with intermediate use Qualified Code(s): E11.42 - Type 2 diabetes mellitus with diabetic polyneuropathy; Z79.4 - prison (current) use of insulin (3) Tobacco abuse Priority: Secondary Status: Chronic (4) CAD (coronary artery disease) Priority: Secondary Status: Chronic Qualifiers: Coronary Disease-Associated Artery/Lesion type: [place] artery [place] vs. transplanted heart: [place] heart Associated angina: without angina Qualified Code(s): I25.10 - Atherosclerotic heart disease of [place] coronary artery without angina pectoris (5) COPD (chronic obstructive pulmonary disease) Priority: Secondary Status: Chronic Qualifiers: COPD type: chronic bronchitis Chronic bronchitis type: simple Qualified Code(s): J41.0 - Simple chronic bronchitis - Discharge Medications Prescriptions: Insulin Glargine [Lantus] 35 unit SQ HS 30 Days OxyCODONE Immed Rel [Roxicodone 5 MG] 10 mg PO Q6H PRN #30 tablet PRN Reason: Pain Home Medications: Gabapentin [Neurontin] 800 mg PO TID 06/21/15 [History] Linagliptin [Tradjenta] 5 mg PO DAILY 06/21/15 [History] Metformin [Glucophage] 1,000 mg PO BID 06/21/15 [History] Tiotropium [Spiriva] 1 cap IH DAILY 06/21/15 [History] Aspirin Enteric Coated [Aspirin EC] 325 mg PO BID #60 tablet. 04/12/16 [Rx] Simvastatin [Zocor] 40 mg PO DAILY 04/12/16 [History] Albuterol Sulfate [Ventolin Hfa] 2 puff IH Q6H PRN 12/27/16 [History] Alendronate Sodium [Fosamax] 70 mg PO QWEEK 12/27/16 [History] Calcium Carbonate/Vitamin D3 [Calcium 500-Vit D3 200 Tablet] 1 tab PO BID [History] Fluticasone/Salmeterol [Advair 250-50 Diskus] 1 puff IH BID 12/27/16 [History] Insulin Glargine [Lantus] 35 unit SQ HS 30 Days 12/30/16 [Rx] OxyCODONE Immed Rel [Roxicodone 5 MG] 10 mg PO Q6H PRN #30 tablet 12/30/16 [Rx] Allergies/Adverse Reactions: Allergies hydrocodone [From Vicodin] Adverse Reaction (Verified 04/12/16 09:53) Nausea Procedures/tests Complete & Pending: Procedures Performed prior 72 hours Category Date Time Status CTA chest [CT angio chest] [CT] Stat Cat Scan 12/29/16 16:42 Completed ECG 12 lead ECG [ECG] Routine Y 12/27/16 13:09 Completed Date of admission: 12/27/16 12:16 Primary care physician: Luis Eduardo Petit CNP Consults: 12/27/16 10:10 Consult to Nutrition [CONS] Routine Comment: Consulting Provider: NUTRITION Reason for Dietary Consult: MST Score 12/27/16 10:26 Consult to Occupational Therapy [CONS] Routine Comment: Evaluate, develop and implement POC Reason for Consult: hip fracture Consult to Physical Therapy [CONS] Routine Comment: Evaluate, develop and implement POC Reason for Consult: hip fracture 12/27/16 18:00 Consult to Orthopedic Navigator [CONS] [CONS] Routine Consult to [facility] Worker [CONS] Routine Reason for SW Consult: post -op hip fracture RT Post Op Consult [CONS] Routine Discharging clinician: Fartun Betancourt Anticipated date of discharge: 12/30/16 - Patient Status Disposition: Home, Self-Care Condition: Fair Functional capacity at discharge: uses cane/walker Overall status at discharge: patient is progressing back to baseline - Discharge Instructions Follow Up With: Luis Eduardo Petit CNP [Primary Care Provider] - Additional Instructions: DISCHARGE INSTRUCTIONS Dr. Peace PROCEDURE PERFORMED Fixation of left hip. Incision care -Daily dressing changes to the right hip with dry gauze and either paper tape or medipore tape. -Avoid soaking wound in water (no hot tubs, bathtubs, swimming pools). -May shower after 2 weeks from surgery date. Carefully wash incision with soap and water. Gently pat it dry. Don't rub the incision, or apply creams or lotions. Sit on a shower stool when showering to keep from falling. Weight bearing status -Weightbearing as tolerated to the bilateral lower extremities. Medications -Pain medication per the discharging medical doctor -Enteric coated aspirin 325 mg by mouth twice per day for 28 days from the date of the surgery. Other -Knee high GREGORY hose 23 hours per day -Consult physical and occupational therapy for ambulation. -Up to chair with assistance at least twice per day. -Follow up with your primary care physician to discuss testing for bone mineral density. Follow-up with Dr. Peace at the office 2 weeks from the surgery date for a post operative evaluation. Call the office at [phone] to schedule appointment. - Diet and Activity Activity: ambulate only with your walker, wear oxygen at all times Diet: diabetic diet, low fat, low cholesterol, low salt diet Hospital course: Ms. Linares is a 61 year old female with the above medical problems who was admitted with left hip pain after sustaining a mechanical fall at home. CT of left hip done in the emergency room showed nondisplaced intertrochanteric fracture. Patient was started on pain control with when necessary IV morphine and oral Percocet. Orthopedic surgery was consulted and patient subsequently underwent left hip intramedullary nail fixation on 12/27/2016. She had an uneventful postoperative recovery. Physical therapy evaluation was completed and recommend inpatient rehabilitation, however patient declines being placed and also declines home health services and she wishes to be discharged home. She continues to be in significant pain and she is being discharged with a prescription for Percocet. Patient was also noted to have hypoxia along with tachycardia since admission although she does not complain of shortness of breath. D-dimer was tested which was elevated. CT angiogram of chest was done which showed no evidence of pulmonary embolism. Home oxygen evaluation was completed and patient would benefit from supplemental oxygen at 3 L/m via nasal cannula and she is noted to be mobile at home. Patient is now medically stable for discharge with outpatient orthopedics follow-up. Time spent discussing smoking cessation with patient: 3 to 10 minutes (4 min) - Time Spent with Patient Total time spent providing and/or coordinating discharge services: Greater than 30 minutes (50 min) - Constitutional Vitals: Temp Pulse Resp BP Pulse Ox 98.9 F 105 18 101/63 94 12/30/16 11:10 12/30/16 11:10 12/30/16 11:10 12/30/16 11:10 12/30/16 11:10 General appearance: Present: A&O X 3, answers questions appropriately - Respiratory Respiratory exam: Present: CTAB. Absent: accessory muscle use, rales, rhonchi, wheezes - Cardiovascular Cardiovascular exam: Present: RRR, +S1, +S2. Absent: diastolic murmur, gallop, rubs, systolic murmur - VTE Documentation of Mechanical Device: Intermittent pneumatic compression device
== END 2016-12-30 17:52 | disposition home or self-care (01) | DRG 482 ==
LOC: 3NENU → SUATTDRO 12:16
PROVIDERS: ADMIT Internal Medicine Sleep Medicine; ATTEND Internal Medicine

== ENCOUNTER 2019-08-05 15:00 | Inpatient (IN) ==
[2019-08-05] MEDS ORDERED: Ondansetron 4 MG/2 ML VIAL IVP ONE (15:25)
[2019-08-05] MEDS ORDERED: Isovue-370 500 ML BOTTLE IVP ONE (15:30)
[2019-08-05 16:27] LABS: Basophils % 0.3 %; Hematocrit 45.2 % (35.3-44.9); Immature Granulocytes % 0.6 % (0-4); Lymphocytes # 2.2 K/mcL (0.6-4.6); Lymphocytes % 17.2 %; Mean Corpuscular HGB Conc 35.4 g/dL (31.6-35.5); Mean Corpuscular Hemoglobin 30.2 pg (28.0-33.3); Mean Corpuscular Volume 85.3 fL (83.0-100.0); Mean Platelet Volume 9.4 fL (9.4-12.4); Monocytes # 0.6 K/mcL (0.0-1.3); Neutrophils # 9.8 K/mcL (1.6-8.9); Platelet Count 322 K/mcL (140-400); Red Cell Distribution Width 12.5 % (11.5-14.5); Segmented Neutrophils % 76.9 %; White Blood Count 12.7 K/mcL (4.3-11.1)
[2019-08-05 16:42] LABS: INR 1.3; Prothrombin Time 14.6 Seconds (9.4-12.1)
[2019-08-05 16:45] LABS: Activated Partial Thrombo Time 41.6 Seconds (26.0-36.0)
[2019-08-05 16:51] LABS: Troponin I 0.06 ng/mL (< 0.04)
[2019-08-05 17:04] LABS: Bilirubin,Urine Moderate (Negative); Blood,Urine Moderate (Negative); Clarity,Urine Clear (Clear); Color,Urine Dark Yellow (Yellow); Glucose,Urine (UA) 500 mg/dL (Normal); Ketones,Urine 40 mg/dL (Negative); Leukocyte Esterase,Urine Negative (Negative); Nitrite,Urine Negative (Negative); PH,Urine 6.5 pH Units (5.0-8.0); Protein,Urine >=1000 mg/dL (Neg-Trace); Specific Gravity,Urine > 1.030 (1.010-1.025)
[2019-08-05 17:04] LABS: Alanine Aminotransferase 3 Units/L (7-52); Albumin 3.7 g/dL (3.5-5.7); Albumin/Globulin Ratio 0.8 (1.1-2.2); Alkaline Phosphatase 92 Units/L (34-104); Aspartate Amino Transferase 8 Units/L (13-39); BUN/Creatinine Ratio 35 (6-26); Bilirubin,Direct 0.4 mg/dL (0.0-0.2); Bilirubin,Indirect 1.3 mg/dL (0.0-1.0); Bilirubin,Total 1.7 mg/dL (0.3-1.0); Blood Urea Nitrogen 17 mg/dL (8-23); Calcium 9.4 mg/dL (8.6-10.3); Carbon Dioxide 23 mEq/L (23-29); Chloride 94 mEq/L (98-107); Creatine Kinase 47 Units/L (30-223); Ethanol < 10 mg/dL (Less than 10); Globulin 4.7 g/dL (2.4-3.5); Glucose 282 mg/dL (70-105); Osmolality,Calculated 282 (280-300); Potassium 3.6 mEq/L (3.5-5.1); Sodium 130 mEq/L (136-145); Thyroid Stimulating Hormone 0.338 mcIU/mL (0.340-5.600); Total Protein 8.4 g/dL (6.4-8.9); eGFR For African Americans > 60 (> 60); eGFR For Non-African Americans > 60 (> 60)
[2019-08-05 17:07] LABS: Bacteria,Urine None Seen per hpf (None-Few); Hyaline Casts,Urine Moderate per lpf (None-Few); Squamous Epithelial Cell,Urine Many per lpf (None-Few)
[2019-08-05 17:13] LABS: Amphetamine Screen,Urine Negative ng/mL (Cutoff=1000); Barbiturate Screen,Urine Negative ng/mL (Cutoff=200); Benzodiazepines Screen,Urine Negative ng/mL (Cutoff=200); Cannabinoid Screen,Urine Negative ng/mL (Cutoff = 50); Cocaine Screen,Urine Negative ng/mL (Cutoff= 300); Opiate Screen,Urine Negative ng/mL (Cutoff=300); Phencyclidine Screen,Urine Negative ng/mL (Cutoff=25)
[2019-08-05 17:25] LABS: RBC,Urine 50-100 per hpf (0-3)
[2019-08-05] MEDS ORDERED: 0.9 % Sodium Chloride 1,000 ML IVC ONE (17:47)
[2019-08-05] MEDS ORDERED: Piperacillin/Tazobactam 3.375 GM in 0.9 % Sodium Chloride Mini Bag 100 ML IVPB ONE (18:59)
[2019-08-05] MEDS ORDERED: Ringers Solution, Lactated 1,000 ML IVC ONE (20:56)
[2019-08-05] MEDS ORDERED: Naloxone 0.4 MG/ML INJ IVP PRN (21:02)
[2019-08-05] MEDS ORDERED: Vancomycin (wt based) 1,000 MG VIAL IVPB SCH (22:00)
[2019-08-05 22:24] LABS: C-Reactive Protein 37 mg/L (Less than 10)
[2019-08-06] MEDS ORDERED: *HR* OxyCODONE Immed Rel 5 MG TABLET PO PRN (02:53)
[2019-08-06] MEDS ORDERED: Dextrose Gel 15 GM/37.5 ML TUBE PO PRN ×2 (02:55)
[2019-08-06] MEDS ORDERED: *HR* Dextrose 50 % in Water (Syg) 50 ML SYRINGE IVP PRN (02:55)
[2019-08-06] MEDS ORDERED: D5% in Water 1,000 ML IVC PRN (02:55)
[2019-08-06 04:55] LABS: Basophils # 0.1 K/mcL (0.0-0.2); Basophils % 0.6 %; Eosinophils % 0.4 %; Hematocrit 38.8 % (35.3-44.9); Immature Granulocytes % 0.4 % (0-4); Lymphocytes # 1.8 K/mcL (0.6-4.6); Lymphocytes % 17.4 %; Mean Corpuscular HGB Conc 34.5 g/dL (31.6-35.5); Mean Corpuscular Hemoglobin 29.6 pg (28.0-33.3); Mean Corpuscular Volume 85.7 fL (83.0-100.0); Mean Platelet Volume 9.5 fL (9.4-12.4); Monocytes # 0.6 K/mcL (0.0-1.3); Monocytes % 5.6 %; Neutrophils # 7.8 K/mcL (1.6-8.9); Platelet Count 286 K/mcL (140-400); Red Blood Count 4.53 M/mcL (3.82-4.97); Red Cell Distribution Width 12.6 % (11.5-14.5); Segmented Neutrophils % 75.6 %; White Blood Count 10.3 K/mcL (4.3-11.1)
[2019-08-06 04:58] LABS: Hemoglobin 13.4 g/dL (11.5-15.4)
[2019-08-06 04:59] LABS: INR 1.3; Prothrombin Time 14.4 Seconds (9.4-12.1)
[2019-08-06 05:16] LABS: Alanine Aminotransferase 4 Units/L (7-52); Albumin 3.1 g/dL (3.5-5.7); Albumin/Globulin Ratio 0.8 (1.1-2.2); Alkaline Phosphatase 69 Units/L (34-104); Aspartate Amino Transferase 7 Units/L (13-39); BUN/Creatinine Ratio 32 (6-26); Bilirubin,Total 1.3 mg/dL (0.3-1.0); Blood Urea Nitrogen 13 mg/dL (8-23); Calcium 8.5 mg/dL (8.6-10.3); Carbon Dioxide 24 mEq/L (23-29); Chloride 104 mEq/L (98-107); Chol/HDL Ratio 7.5 (0-4.9); Cholesterol 150 mg/dL (< 200); Globulin 3.8 g/dL (2.4-3.5); Glucose 201 mg/dL (70-105); HDL Cholesterol 20 mg/dL (40-59); LDL Cholesterol,Calculated 103 mg/dL (0-99); Magnesium 1.6 mg/dL (1.6-2.6); Osmolality,Calculated 288 (280-300); Phosphorous 2.4 mg/dL (2.7-4.5); Potassium 3.4 mEq/L (3.5-5.1); Sodium 136 mEq/L (136-145); Total Protein 6.9 g/dL (6.4-8.9); Triglycerides 133 mg/dL (< 150); eGFR For African Americans > 60 (> 60); eGFR For Non-African Americans > 60 (> 60)
[2019-08-06] MEDS: Insulin LISPRO 300 UNITS/3 ML VIAL SQ SCH ×4 (06:08→23:36)
[2019-08-06] MEDS: Cefepime HCl 1,000 MG in 0.9 % Sodium Chloride Mini Bag 100 ML IVPB SCH ×2 (06:14→18:44)
[2019-08-06] MEDS: Tiotropium 18 MCG inhalation IH SCH (08:23)
[2019-08-06] MEDS: Budesonide/Formoterol 80/4.5 1 PUFF INH IH SCH ×2 (08:24→19:45)
[2019-08-06 08:30] LABS: Estimated Average Glucose 214 mg/dl
[2019-08-06] MEDS: Gabapentin 300 MG CAPSULE PO SCH ×2 (08:35→13:44)
[2019-08-06] MEDS: MetroNIDAZOLE 500 MG/100 ML 500 MG/100 ML BAG IVPB SCH ×3 (08:37→23:33)
[2019-08-06] MEDS ORDERED: Aspirin Enteric Coated 325 MG Tablet PO SCH (09:00)
[2019-08-06 10:49] LABS: Folate 7.6 ng/mL (3.0-16.0)
[2019-08-06 11:19] LABS: Protein/Creatinine Ratio,Urine 5.54 mg/mg (0.00-0.20); Sodium, Urine 104.2 mEq/L
[2019-08-06 11:23] LABS: Hepatitis B Surface Antigen Nonreactive (Nonreactive)
[2019-08-06 11:52] LABS: Hepatitis C Virus Antibody Nonreactive (Nonreactive)
[2019-08-06 11:53] LABS: Hepatitis B Core IgM Nonreactive (Nonreactive)
[2019-08-06 11:55] LABS: Hepatitis A Antibody IgM Nonreactive (Nonreactive)
[2019-08-06] MEDS: *HR* Heparin 5,000 UNIT/ML VIAL SQ SCH (17:22)
[2019-08-06] MEDS ORDERED: Aspirin Enteric Coated 325 MG Tablet PO ONE (21:06)
[2019-08-07 02:21] LABS: BUN/Creatinine Ratio 34 (6-26); Blood Urea Nitrogen 17 mg/dL (8-23); Calcium 8.7 mg/dL (8.6-10.3); Chloride 105 mEq/L (98-107); Glucose 189 mg/dL (70-105); Osmolality,Calculated 291 (280-300); Potassium 3.9 mEq/L (3.5-5.1); Sodium 137 mEq/L (136-145); eGFR For African Americans > 60 (> 60); eGFR For Non-African Americans > 60 (> 60)
[2019-08-07 02:51] LABS: Carbon Dioxide 25 mEq/L (23-29)
[2019-08-07] MEDS: Cefepime HCl 1,000 MG in 0.9 % Sodium Chloride Mini Bag 100 ML IVPB SCH ×2 (06:08→18:47)
[2019-08-07] MEDS: *HR* Heparin 5,000 UNIT/ML VIAL SQ SCH ×2 (06:11→18:46)
[2019-08-07] MEDS: Insulin LISPRO 300 UNITS/3 ML VIAL SQ SCH ×3 (07:59→17:22)
[2019-08-07] MEDS: MetroNIDAZOLE 500 MG/100 ML 500 MG/100 ML BAG IVPB SCH ×2 (08:01→16:05)
[2019-08-07] MEDS: Tiotropium 18 MCG inhalation IH SCH (10:22)
[2019-08-07] MEDS: Budesonide/Formoterol 80/4.5 1 PUFF INH IH SCH ×2 (10:22→21:08)
[2019-08-07] MEDS: Aspirin Enteric Coated 81 MG Tablet PO SCH (13:16)
[2019-08-08] MEDS: Insulin LISPRO 300 UNITS/3 ML VIAL SQ SCH ×4 (00:28→17:57)
[2019-08-08] MEDS: MetroNIDAZOLE 500 MG/100 ML 500 MG/100 ML BAG IVPB SCH ×3 (00:30→15:20)
[2019-08-08] MEDS ORDERED: Methocarbamol 500 MG TABLET PO ONE (01:37)
[2019-08-08] MEDS: Cefepime HCl 1,000 MG in 0.9 % Sodium Chloride Mini Bag 100 ML IVPB SCH ×2 (06:12→17:29)
[2019-08-08] MEDS: *HR* Heparin 5,000 UNIT/ML VIAL SQ SCH ×2 (06:12→18:34)
[2019-08-08] MEDS: Tiotropium 18 MCG inhalation IH SCH (07:51)
[2019-08-08] MEDS: Budesonide/Formoterol 80/4.5 1 PUFF INH IH SCH ×2 (07:51→20:27)
[2019-08-08] MEDS: Aspirin Enteric Coated 81 MG Tablet PO SCH (08:59)
[2019-08-08 09:00] LABS: Basophils # 0.1 K/mcL (0.0-0.2); Basophils % 0.7 %; Eosinophils # 0.3 K/mcL (0.0-0.6); Hemoglobin 13.3 g/dL (11.5-15.4); Immature Granulocytes % 0.3 % (0-4); Lymphocytes # 2.7 K/mcL (0.6-4.6); Lymphocytes % 37.3 %; Mean Corpuscular HGB Conc 33.3 g/dL (31.6-35.5); Mean Corpuscular Hemoglobin 30.1 pg (28.0-33.3); Mean Corpuscular Volume 90.5 fL (83.0-100.0); Mean Platelet Volume 9.5 fL (9.4-12.4); Monocytes # 0.4 K/mcL (0.0-1.3); Monocytes % 5.2 %; Neutrophils # 3.9 K/mcL (1.6-8.9); Platelet Count 325 K/mcL (140-400); Red Blood Count 4.42 M/mcL (3.82-4.97); Red Cell Distribution Width 12.7 % (11.5-14.5); Segmented Neutrophils % 52.5 %; White Blood Count 7.3 K/mcL (4.3-11.1)
[2019-08-08 09:17] LABS: BUN/Creatinine Ratio 31 (6-26); Blood Urea Nitrogen 15 mg/dL (8-23); Calcium 8.6 mg/dL (8.6-10.3); Carbon Dioxide 22 mEq/L (23-29); Chloride 103 mEq/L (98-107); Glucose 203 mg/dL (70-105); Osmolality,Calculated 287 (280-300); Potassium 3.9 mEq/L (3.5-5.1); Sodium 135 mEq/L (136-145); eGFR For African Americans > 60 (> 60); eGFR For Non-African Americans > 60 (> 60)
[2019-08-08 11:00] LABS: Complement C3 121 mg/dL (87-200)
[2019-08-08 15:24] LABS: Alanine Aminotransferase 4 Units/L (7-52); Albumin 3.1 g/dL (3.5-5.7); Albumin/Globulin Ratio 0.9 (1.1-2.2); Alkaline Phosphatase 64 Units/L (34-104); Aspartate Amino Transferase 13 Units/L (13-39); Bilirubin,Direct 0.1 mg/dL (0.0-0.2); Bilirubin,Indirect 0.6 mg/dL (0.0-1.0); Bilirubin,Total 0.7 mg/dL (0.3-1.0); Globulin 3.6 g/dL (2.4-3.5); Total Protein 6.7 g/dL (6.4-8.9)
[2019-08-08] MEDS ORDERED: Aminoglycoside Consult 1 EACH MC ONE (15:29)
[2019-08-08] MEDS: Doxycycline 100 MG in 0.9 % Sodium Chloride Mini Bag 100 ML IVPB SCH (17:56)
[2019-08-08] MEDS: Gabapentin 400 MG CAPSULE PO SCH (20:42)
[2019-08-08] MEDS ORDERED: Insulin LISPRO 300 UNITS/3 ML VIAL SQ SCH (21:00)
[2019-08-09] MEDS: *HR* Heparin 5,000 UNIT/ML VIAL SQ SCH (05:18)
[2019-08-09] MEDS: Doxycycline 100 MG in 0.9 % Sodium Chloride Mini Bag 100 ML IVPB SCH (05:19)
[2019-08-09] MEDS: Budesonide/Formoterol 80/4.5 1 PUFF INH IH SCH (08:00)
[2019-08-09] MEDS: Tiotropium 18 MCG inhalation IH SCH (08:03)
[2019-08-09] MEDS: Aspirin Enteric Coated 81 MG Tablet PO SCH (08:57)
[2019-08-09] MEDS: Gabapentin 400 MG CAPSULE PO SCH (08:57)
[2019-08-09] MEDS: Insulin LISPRO 300 UNITS/3 ML VIAL SQ SCH ×2 (08:58→13:58)
[2019-08-09 12:28] VITALS: BP 146/75
[2019-08-10 07:30] LABS: ANA IgG by ELISA NONE DETECTED (None Detected)
[2019-08-10 08:00] LABS: Serine Protease-3 Antibody 2 AU/mL (0-19)
[2019-08-11 22:07] LABS: Kappa Qnt Free Light Chains 5.64 mg/dL (0.33-1.94); Lambda Qnt Free Light Chains 3.87 mg/dL (0.57-2.63)
[2019-08-13 00:57] LABS: Alpha 2 Globulin (PEP) 0.83 g/dL (0.48-1.05); Beta Globulin (PEP) 1.12 g/dL (0.48-1.10)
[2019-08-13 08:38] LABS: IFE Reflexed IFE Done; Immunoglobulin A 784 mg/dL (68-408); Immunoglobulin G 1410 mg/dL (768-1632); Immunoglobulin M 118 mg/dL (35-263)
== END 2019-08-09 15:30 | disposition home health service (06) | DRG 40 ==
LOC: EMEROOARM 15:00 → 3BNU 15:00 → SUATTDRO 20:15 → 3BNU 21:27
PROVIDERS: ADMIT Family Medicine; ATTEND Internal Medicine

== ENCOUNTER 2019-10-02 19:57 | Inpatient (IN) ==
[2019-10-02] MEDS ORDERED: 0.9 % Sodium Chloride 1,000 ML IVC ONE (20:43)
[2019-10-02 21:18] LABS: Basophils % 0.4 %; Eosinophils # 0.1 K/mcL (0.0-0.6); Eosinophils % 1.3 %; Hematocrit 39.4 % (35.3-44.9); Immature Granulocytes % 0.5 % (0-4); Lymphocytes # 2.3 K/mcL (0.6-4.6); Lymphocytes % 20.2 %; Mean Corpuscular Volume 87.9 fL (83.0-100.0); Mean Platelet Volume 9.2 fL (9.4-12.4); Monocytes # 0.6 K/mcL (0.0-1.3); Monocytes % 5.5 %; Neutrophils # 8.1 K/mcL (1.6-8.9); Platelet Count 406 K/mcL (140-400); Red Blood Count 4.48 M/mcL (3.82-4.97); Red Cell Distribution Width 12.8 % (11.5-14.5); Segmented Neutrophils % 72.1 %; White Blood Count 11.2 K/mcL (4.3-11.1)
[2019-10-02 21:37] LABS: BUN/Creatinine Ratio 21 (6-26); Blood Urea Nitrogen 10 mg/dL (8-23); Calcium 8.9 mg/dL (8.6-10.3); Carbon Dioxide 27 mEq/L (23-29); Chloride 96 mEq/L (98-107); Glucose 302 mg/dL (70-105); Osmolality,Calculated 280 (280-300); Potassium 3.6 mEq/L (3.5-5.1); Sodium 130 mEq/L (136-145); eGFR For African Americans > 60 (> 60); eGFR For Non-African Americans > 60 (> 60)
[2019-10-02 21:38] LABS: Uric Acid 2.8 mg/dL (2.3-7.6)
[2019-10-02] MEDS ORDERED: cefTRIAXone 1,000 MG in Water for inj. (sterile) 10 ML IVP ONE (22:03)
[2019-10-02 23:01] LABS: Bilirubin,Urine Small (Negative); Blood,Urine Large (Negative); Clarity,Urine Cloudy (Clear); Color,Urine Dark Yellow (Yellow); Glucose,Urine (UA) 500 mg/dL (Normal); Ketones,Urine Negative (Negative); Leukocyte Esterase,Urine Small (Negative); Nitrite,Urine Negative (Negative); Protein,Urine 100 mg/dL (Neg-Trace); Specific Gravity,Urine 1.024 (1.010-1.025); Urobilinogen,Urine >=8.0 mg/dL (Normal)
[2019-10-02 23:03] LABS: Bacteria,Urine Few per hpf (None-Few); Hyaline Casts,Urine None Seen per lpf (None-Few); Squamous Epithelial Cell,Urine Many per lpf (None-Few); WBC,Urine 30-50 per hpf (0-3)
[2019-10-02 23:14] LABS: Yeast,Urine Few per hpf (None Seen)
[2019-10-03] MEDS ORDERED: Naloxone 0.4 MG/ML INJ IVP PRN ×2 (07:31→18:38)
[2019-10-03] MEDS ORDERED: *HR* Dextrose 50 % in Water (Syg) 50 ML SYRINGE IVP PRN ×2 (07:32→18:38)
[2019-10-03] MEDS ORDERED: Dextrose Gel 15 GM/37.5 ML TUBE PO PRN ×4 (07:32→18:38)
[2019-10-03] MEDS ORDERED: D5% in Water 1,000 ML IVC PRN ×2 (07:32→18:38)
[2019-10-03] MEDS: Piperacillin/Tazobactam 3.375 GM in 0.9 % Sodium Chloride Mini Bag 100 ML IVPB SCH ×2 (08:22→16:05)
[2019-10-03] MEDS: Gabapentin 400 MG CAPSULE PO SCH ×3 (08:23→22:39)
[2019-10-03 08:36] LABS: Basophils % 0.2 %; Eosinophils # 0.2 K/mcL (0.0-0.6); Eosinophils % 2.2 %; Immature Granulocytes % 0.4 % (0-4); Lymphocytes # 2.5 K/mcL (0.6-4.6); Lymphocytes % 27.8 %; Mean Corpuscular HGB Conc 32.4 g/dL (31.6-35.5); Mean Corpuscular Hemoglobin 28.3 pg (28.0-33.3); Mean Corpuscular Volume 87.4 fL (83.0-100.0); Mean Platelet Volume 9.4 fL (9.4-12.4); Monocytes # 0.7 K/mcL (0.0-1.3); Monocytes % 7.4 %; Neutrophils # 5.7 K/mcL (1.6-8.9); Platelet Count 389 K/mcL (140-400); Red Blood Count 3.89 M/mcL (3.82-4.97); White Blood Count 9.1 K/mcL (4.3-11.1)
[2019-10-03 08:56] LABS: BUN/Creatinine Ratio 15 (6-26); Blood Urea Nitrogen 6 mg/dL (8-23); Calcium 8.3 mg/dL (8.6-10.3); Carbon Dioxide 27 mEq/L (23-29); Chloride 102 mEq/L (98-107); Glucose 191 mg/dL (70-105); Osmolality,Calculated 279 (280-300); Potassium 3.7 mEq/L (3.5-5.1); Sodium 133 mEq/L (136-145); eGFR For African Americans > 60 (> 60); eGFR For Non-African Americans > 60 (> 60)
[2019-10-03 10:37] LABS: Estimated Average Glucose 209 mg/dl
[2019-10-03] MEDS: Insulin LISPRO 300 UNITS/3 ML VIAL SQ SCH ×2 (12:57→16:25)
[2019-10-03] MEDS ORDERED: Ondansetron 4 MG/2 ML VIAL ONE (16:43)
[2019-10-03] MEDS ORDERED: Lidocaine -MPF 2% 2 ML VIAL ONE (16:43)
[2019-10-03] MEDS ORDERED: Dexamethasone 4 MG/ML VIAL ONE (16:43)
[2019-10-03] MEDS ORDERED: *HR* Propofol 200 MG/20 ML VIAL IVP ONE (16:44)
[2019-10-03] MEDS ORDERED: *HR* FentaNYL (PF) 100 MCG/2 ML VIAL ONE (16:44)
[2019-10-03] MEDS ORDERED: Bupivacaine/EPI 1:200k 0.25%PF 10 ML VIAL INFILT ONE (17:01)
[2019-10-03] MEDS ORDERED: Vancomycin 1,000 MG VIAL ONE (17:46)
[2019-10-03] MEDS ORDERED: *HR* Heparin 5,000 UNIT/ML VIAL SQ SCH (22:00)
[2019-10-03] MEDS: *HR* Heparin 5,000 UNIT/ML VIAL SQ SCH (22:39)
[2019-10-03] MEDS: *HR* OxyCODONE Immed Rel 5 MG TABLET PO PRN (23:50)
[2019-10-04] MEDS: Piperacillin/Tazobactam 3.375 GM in 0.9 % Sodium Chloride Mini Bag 100 ML IVPB SCH ×3 (01:12→15:04)
[2019-10-04] MEDS: *HR* Heparin 5,000 UNIT/ML VIAL SQ SCH ×3 (05:09→21:52)
[2019-10-04] MEDS: Gabapentin 400 MG CAPSULE PO SCH ×3 (09:11→19:37)
[2019-10-04] MEDS: Insulin LISPRO 300 UNITS/3 ML VIAL SQ SCH ×3 (09:12→17:11)
[2019-10-04 09:23] LABS: Basophils % 0.5 %; Eosinophils # 0.2 K/mcL (0.0-0.6); Eosinophils % 2.8 %; Hematocrit 32.3 % (35.3-44.9); Hemoglobin 10.2 g/dL (11.5-15.4); Immature Granulocytes % 0.4 % (0-4); Lymphocytes # 1.5 K/mcL (0.6-4.6); Lymphocytes % 17.9 %; Mean Corpuscular HGB Conc 31.6 g/dL (31.6-35.5); Mean Corpuscular Hemoglobin 28.3 pg (28.0-33.3); Mean Corpuscular Volume 89.5 fL (83.0-100.0); Mean Platelet Volume 9.3 fL (9.4-12.4); Monocytes # 0.5 K/mcL (0.0-1.3); Monocytes % 6.3 %; Neutrophils # 5.8 K/mcL (1.6-8.9); Platelet Count 376 K/mcL (140-400); Red Blood Count 3.61 M/mcL (3.82-4.97); Segmented Neutrophils % 72.1 %; White Blood Count 8.1 K/mcL (4.3-11.1)
[2019-10-04 09:46] LABS: BUN/Creatinine Ratio 24 (6-26); Blood Urea Nitrogen 12 mg/dL (8-23); Calcium 8.4 mg/dL (8.6-10.3); Carbon Dioxide 25 mEq/L (23-29); Chloride 105 mEq/L (98-107); Glucose 297 mg/dL (70-105); Osmolality,Calculated 293 (280-300); Potassium 4.1 mEq/L (3.5-5.1); Sodium 136 mEq/L (136-145); eGFR For African Americans > 60 (> 60); eGFR For Non-African Americans > 60 (> 60)
[2019-10-05] MEDS: Piperacillin/Tazobactam 3.375 GM in 0.9 % Sodium Chloride Mini Bag 100 ML IVPB SCH ×3 (00:09→15:39)
[2019-10-05] MEDS: *HR* Heparin 5,000 UNIT/ML VIAL SQ SCH ×3 (05:32→22:39)
[2019-10-05] MEDS: Insulin LISPRO 300 UNITS/3 ML VIAL SQ SCH ×3 (08:36→18:20)
[2019-10-05] MEDS: Gabapentin 400 MG CAPSULE PO SCH ×3 (08:39→20:36)
[2019-10-05] MEDS: lisinopriL 5 MG TABLET PO SCH (08:39)
[2019-10-05] MEDS ORDERED: NON-FORMULARY MEDICATION 1 EACH EACH (Linagliptin [Tradjenta] 5 MG) PO SCH (09:00)
[2019-10-05] MEDS: Ciprofloxacin HCL Soln 5 ML BOTTLE LEFT EYE SCH (20:36)
[2019-10-05] MEDS: *HR* OxyCODONE Immed Rel 5 MG TABLET PO PRN (20:41)
[2019-10-05] MEDS ORDERED: Insulin LISPRO 300 UNITS/3 ML VIAL SQ ONE (20:51)
[2019-10-06] MEDS: Ciprofloxacin HCL Soln 5 ML BOTTLE LEFT EYE SCH ×6 (00:16→20:19)
[2019-10-06] MEDS: Piperacillin/Tazobactam 3.375 GM in 0.9 % Sodium Chloride Mini Bag 100 ML IVPB SCH ×3 (00:16→16:55)
[2019-10-06] MEDS: *HR* Heparin 5,000 UNIT/ML VIAL SQ SCH ×3 (04:27→22:55)
[2019-10-06] MEDS: Insulin LISPRO 300 UNITS/3 ML VIAL SQ SCH ×3 (08:25→16:55)
[2019-10-06] MEDS: Gabapentin 400 MG CAPSULE PO SCH ×3 (08:27→20:19)
[2019-10-06] MEDS: lisinopriL 5 MG TABLET PO SCH (08:28)
[2019-10-06 10:26] LABS: Basophils % 0.7 %; Eosinophils # 0.3 K/mcL (0.0-0.6); Eosinophils % 5.1 %; Hematocrit 33.7 % (35.3-44.9); Hemoglobin 10.7 g/dL (11.5-15.4); Immature Granulocytes % 0.3 % (0-4); Lymphocytes # 1.8 K/mcL (0.6-4.6); Lymphocytes % 30.3 %; Mean Corpuscular HGB Conc 31.8 g/dL (31.6-35.5); Mean Corpuscular Hemoglobin 28.2 pg (28.0-33.3); Mean Corpuscular Volume 88.9 fL (83.0-100.0); Mean Platelet Volume 9.2 fL (9.4-12.4); Monocytes # 0.4 K/mcL (0.0-1.3); Neutrophils # 3.5 K/mcL (1.6-8.9); Platelet Count 397 K/mcL (140-400); Red Blood Count 3.79 M/mcL (3.82-4.97); Red Cell Distribution Width 13.1 % (11.5-14.5); Segmented Neutrophils % 57.6 %
[2019-10-06 10:39] LABS: BUN/Creatinine Ratio 30 (6-26); Blood Urea Nitrogen 18 mg/dL (8-23); Calcium 8.5 mg/dL (8.6-10.3); Carbon Dioxide 26 mEq/L (23-29); Chloride 101 mEq/L (98-107); Glucose 364 mg/dL (70-105); Osmolality,Calculated 295 (280-300); Potassium 3.8 mEq/L (3.5-5.1); Sodium 134 mEq/L (136-145); eGFR For African Americans > 60 (> 60); eGFR For Non-African Americans > 60 (> 60)
[2019-10-07] MEDS: Piperacillin/Tazobactam 3.375 GM in 0.9 % Sodium Chloride Mini Bag 100 ML IVPB SCH ×4 (00:16→23:20)
[2019-10-07] MEDS: Ciprofloxacin HCL Soln 5 ML BOTTLE LEFT EYE SCH ×6 (00:17→20:56)
[2019-10-07] MEDS ORDERED: Insulin LISPRO 300 UNITS/3 ML VIAL SQ ONE (00:47)
[2019-10-07] MEDS ORDERED: Insulin DETEMIR 100 UNIT/ML X5UNITS SQ ONE (00:48)
[2019-10-07] MEDS: *HR* Heparin 5,000 UNIT/ML VIAL SQ SCH ×3 (05:25→21:01)
[2019-10-07 06:18] LABS: Basophils % 0.6 %; Eosinophils # 0.3 K/mcL (0.0-0.6); Eosinophils % 4.7 %; Hematocrit 32.6 % (35.3-44.9); Hemoglobin 10.4 g/dL (11.5-15.4); Immature Granulocytes % 0.5 % (0-4); Lymphocytes # 2.2 K/mcL (0.6-4.6); Lymphocytes % 33.7 %; Mean Corpuscular HGB Conc 31.9 g/dL (31.6-35.5); Mean Corpuscular Hemoglobin 28.3 pg (28.0-33.3); Mean Corpuscular Volume 88.8 fL (83.0-100.0); Monocytes # 0.5 K/mcL (0.0-1.3); Monocytes % 7.5 %; Neutrophils # 3.5 K/mcL (1.6-8.9); Platelet Count 380 K/mcL (140-400); Red Blood Count 3.67 M/mcL (3.82-4.97); Red Cell Distribution Width 13.1 % (11.5-14.5); White Blood Count 6.6 K/mcL (4.3-11.1)
[2019-10-07 06:39] LABS: BUN/Creatinine Ratio 43 (6-26); Blood Urea Nitrogen 21 mg/dL (8-23); Carbon Dioxide 27 mEq/L (23-29); Chloride 102 mEq/L (98-107); Glucose 183 mg/dL (70-105); Osmolality,Calculated 290 (280-300); Potassium 3.9 mEq/L (3.5-5.1); Sodium 136 mEq/L (136-145); eGFR For African Americans > 60 (> 60); eGFR For Non-African Americans > 60 (> 60)
[2019-10-07 07:20] LABS: Platelet Estimate Normal (Normal); Reactive Lymphocytes Present (Not Present)
[2019-10-07] MEDS: lisinopriL 5 MG TABLET PO SCH (09:51)
[2019-10-07] MEDS: Gabapentin 400 MG CAPSULE PO SCH ×3 (09:51→20:54)
[2019-10-07] MEDS: Insulin LISPRO 300 UNITS/3 ML VIAL SQ SCH ×4 (09:51→20:57)
[2019-10-07] MEDS: *HR* OxyCODONE Immed Rel 5 MG TABLET PO PRN (12:37)
[2019-10-07] MEDS: Sennosides/Docusate Sodium TABLET PO SCH (20:54)
[2019-10-07] MEDS: Insulin DETEMIR 100 UNIT/ML X5UNITS SQ SCH (20:57)
[2019-10-08] MEDS: Ciprofloxacin HCL Soln 5 ML BOTTLE LEFT EYE SCH ×7 (00:53→22:58)
[2019-10-08 05:02] LABS: Basophils # 0.1 K/mcL (0.0-0.2); Basophils % 0.7 %; Eosinophils # 0.3 K/mcL (0.0-0.6); Eosinophils % 4.1 %; Hematocrit 33.4 % (35.3-44.9); Hemoglobin 10.7 g/dL (11.5-15.4); Immature Granulocytes % 0.5 % (0-4); Lymphocytes # 2.4 K/mcL (0.6-4.6); Lymphocytes % 31.4 %; Mean Corpuscular Hemoglobin 28.5 pg (28.0-33.3); Mean Corpuscular Volume 88.8 fL (83.0-100.0); Mean Platelet Volume 9.1 fL (9.4-12.4); Monocytes # 0.4 K/mcL (0.0-1.3); Monocytes % 5.4 %; Neutrophils # 4.4 K/mcL (1.6-8.9); Platelet Count 375 K/mcL (140-400); Red Blood Count 3.76 M/mcL (3.82-4.97); Red Cell Distribution Width 13.3 % (11.5-14.5); Segmented Neutrophils % 57.9 %; White Blood Count 7.5 K/mcL (4.3-11.1)
[2019-10-08] MEDS: *HR* Heparin 5,000 UNIT/ML VIAL SQ SCH ×3 (05:07→21:14)
[2019-10-08 05:28] LABS: BUN/Creatinine Ratio 41 (6-26); Blood Urea Nitrogen 26 mg/dL (8-23); Calcium 9.2 mg/dL (8.6-10.3); Carbon Dioxide 25 mEq/L (23-29); Chloride 103 mEq/L (98-107); Glucose 193 mg/dL (70-105); Osmolality,Calculated 292 (280-300); Sodium 136 mEq/L (136-145); eGFR For African Americans > 60 (> 60); eGFR For Non-African Americans > 60 (> 60)
[2019-10-08] MEDS: Insulin LISPRO 300 UNITS/3 ML VIAL SQ SCH ×4 (08:50→21:15)
[2019-10-08] MEDS: Piperacillin/Tazobactam 3.375 GM in 0.9 % Sodium Chloride Mini Bag 100 ML IVPB SCH (08:52)
[2019-10-08] MEDS: Sennosides/Docusate Sodium TABLET PO SCH ×2 (08:53→21:14)
[2019-10-08] MEDS: Gabapentin 400 MG CAPSULE PO SCH ×3 (08:53→21:14)
[2019-10-08] MEDS: lisinopriL 5 MG TABLET PO SCH (08:53)
[2019-10-08] MEDS: *HR* OxyCODONE Immed Rel 5 MG TABLET PO PRN ×2 (09:02→17:58)
[2019-10-08] MEDS ORDERED: cefTRIAXone 2,000 MG in 0.9 % Sodium Chloride Mini Bag 100 ML IVPB SCH (15:00)
[2019-10-08] MEDS: metroNIDAZOLE 500 MG TABLET PO SCH ×2 (15:24→21:14)
[2019-10-08] MEDS: polyethylene glycoL 3350 17 GM POWD.PACK PO SCH (17:58)
[2019-10-08] MEDS ORDERED: Acetaminophen 325 MG TABLET PO PRN (18:02)
[2019-10-08] MEDS: Insulin DETEMIR 100 UNIT/ML X5UNITS SQ SCH (21:14)
[2019-10-08] MEDS: Nystatin POWDER 30 GM BOTTLE TP SCH ×2 (21:53→22:59)
[2019-10-09] MEDS: Ciprofloxacin HCL Soln 5 ML BOTTLE LEFT EYE SCH ×3 (03:05→11:57)
[2019-10-09] MEDS: *HR* OxyCODONE Immed Rel 5 MG TABLET PO PRN ×2 (03:06→12:04)
[2019-10-09] MEDS: *HR* Heparin 5,000 UNIT/ML VIAL SQ SCH (04:47)
[2019-10-09 05:30] LABS: Basophils % 0.4 %; Eosinophils # 0.3 K/mcL (0.0-0.6); Eosinophils % 4.4 %; Hematocrit 32.1 % (35.3-44.9); Hemoglobin 10.1 g/dL (11.5-15.4); Immature Granulocytes % 0.6 % (0-4); Lymphocytes # 2.5 K/mcL (0.6-4.6); Lymphocytes % 36.3 %; Mean Corpuscular HGB Conc 31.5 g/dL (31.6-35.5); Mean Corpuscular Hemoglobin 27.9 pg (28.0-33.3); Mean Corpuscular Volume 88.7 fL (83.0-100.0); Mean Platelet Volume 9.2 fL (9.4-12.4); Monocytes # 0.5 K/mcL (0.0-1.3); Monocytes % 6.6 %; Neutrophils # 3.5 K/mcL (1.6-8.9); Platelet Count 361 K/mcL (140-400); Red Blood Count 3.62 M/mcL (3.82-4.97); Red Cell Distribution Width 13.6 % (11.5-14.5); Segmented Neutrophils % 51.7 %; White Blood Count 6.8 K/mcL (4.3-11.1)
[2019-10-09 05:49] LABS: BUN/Creatinine Ratio 53 (6-26); Blood Urea Nitrogen 26 mg/dL (8-23); Calcium 8.8 mg/dL (8.6-10.3); Carbon Dioxide 26 mEq/L (23-29); Chloride 103 mEq/L (98-107); Glucose 246 mg/dL (70-105); Osmolality,Calculated 291 (280-300); Potassium 3.9 mEq/L (3.5-5.1); Sodium 134 mEq/L (136-145); eGFR For African Americans > 60 (> 60); eGFR For Non-African Americans > 60 (> 60)
[2019-10-09] MEDS: Insulin LISPRO 300 UNITS/3 ML VIAL SQ SCH ×2 (08:55→11:57)
[2019-10-09] MEDS: polyethylene glycoL 3350 17 GM POWD.PACK PO SCH (08:57)
[2019-10-09] MEDS: metroNIDAZOLE 500 MG TABLET PO SCH (08:57)
[2019-10-09] MEDS: Nystatin POWDER 30 GM BOTTLE TP SCH (08:58)
[2019-10-09] MEDS: Sennosides/Docusate Sodium TABLET PO SCH (08:58)
[2019-10-09] MEDS: Gabapentin 400 MG CAPSULE PO SCH (08:58)
[2019-10-09] MEDS: lisinopriL 5 MG TABLET PO SCH (08:59)
[2019-10-09] MEDS ORDERED: Aspirin Enteric Coated 81 MG Tablet PO SCH (09:00)
[2019-10-09 11:51] VITALS: BP 114/65
[2019-10-09] MEDS ORDERED: FLU Vac QV 19-20 (6Month+)/PF 0.5 ML SYRINGE IM ONE (12:43)
[2019-10-09] MEDS ORDERED: Aminoglycoside Consult 1 EACH MC ONE (13:59)
== END 2019-10-09 14:00 | DRG 854 ==
LOC: EMEROOARM 19:57 → 3NENU 19:57 → SUATTDRO 10-04 15:05
PROVIDERS: ADMIT Family Medicine; ATTEND Internal Medicine

== ENCOUNTER 2019-12-24 17:00 | Inpatient (IN) ==
[2019-12-24] MEDS ORDERED: *HR* Dextrose 50 % in Water (Syg) 50 ML SYRINGE IVP PRN (20:06)
[2019-12-24] MEDS ORDERED: Dextrose Gel 15 GM/37.5 ML TUBE PO PRN ×2 (20:06)
[2019-12-24] MEDS ORDERED: Ondansetron ODT 4 MG TAB.RAPDIS SL PRN (20:06)
[2019-12-24] MEDS ORDERED: Naloxone 0.4 MG/ML INJ IVP PRN (20:06)
[2019-12-24] MEDS ORDERED: D5% in Water 1,000 ML IVC PRN (20:06)
[2019-12-24] MEDS ORDERED: Albuterol 2.5 MG/3 ML NEBULIZER IH PRN (20:06)
[2019-12-24] MEDS ORDERED: 0.9 % Sodium Chloride 1,000 ML IVC SCH (20:15)
[2019-12-24] MEDS ORDERED: Vancomycin (wt based) 1,000 MG VIAL IVPB SCH (21:00)
[2019-12-24 21:07] LABS: Basophils % 0.3 %; Eosinophils # 0.1 K/mcL (0.0-0.6); Eosinophils % 0.7 %; Hematocrit 33.7 % (35.3-44.9); Hemoglobin 11.3 g/dL (11.5-15.4); Immature Granulocytes % 0.4 % (0-4); Lymphocytes # 0.6 K/mcL (0.6-4.6); Lymphocytes % 6.1 %; Mean Corpuscular HGB Conc 33.5 g/dL (31.6-35.5); Mean Corpuscular Hemoglobin 29.2 pg (28.0-33.3); Mean Corpuscular Volume 87.1 fL (83.0-100.0); Mean Platelet Volume 9.3 fL (9.4-12.4); Monocytes # 0.4 K/mcL (0.0-1.3); Monocytes % 3.9 %; Neutrophils # 8.6 K/mcL (1.6-8.9); Platelet Count 229 K/mcL (140-400); Red Blood Count 3.87 M/mcL (3.82-4.97); Red Cell Distribution Width 14.1 % (11.5-14.5); Segmented Neutrophils % 88.6 %; White Blood Count 9.8 K/mcL (4.3-11.1)
[2019-12-24 21:10] LABS: INR 1.2; Prothrombin Time 13.5 Seconds (9.4-12.1)
[2019-12-24 21:12] LABS: Activated Partial Thrombo Time 35.4 Seconds (26.0-36.0)
[2019-12-24 21:29] LABS: Alanine Aminotransferase 8 Units/L (7-52); Albumin 3.1 g/dL (3.5-5.7); Albumin/Globulin Ratio 0.9 (1.1-2.2); Alkaline Phosphatase 116 Units/L (34-104); Aspartate Amino Transferase 13 Units/L (13-39); BUN/Creatinine Ratio 26 (6-26); Bilirubin,Total 0.8 mg/dL (0.3-1.0); Blood Urea Nitrogen 15 mg/dL (8-23); C-Reactive Protein 27 mg/L (Less than 10); Calcium 8.7 mg/dL (8.6-10.3); Carbon Dioxide 25 mEq/L (23-29); Chloride 104 mEq/L (98-107); Globulin 3.4 g/dL (2.4-3.5); Glucose 324 mg/dL (70-105); Magnesium 1.3 mg/dL (1.6-2.6); Osmolality,Calculated 299 (280-300); Phosphorous 2.7 mg/dL (2.7-4.5); Potassium 3.5 mEq/L (3.5-5.1); Sodium 138 mEq/L (136-145); Total Protein 6.5 g/dL (6.4-8.9); Troponin I 0.08 ng/mL (< 0.04); eGFR For African Americans > 60 (> 60); eGFR For Non-African Americans > 60 (> 60)
[2019-12-24] MEDS: Nicotine 14 MG PATCH.TD24 TD SCH (21:40)
[2019-12-24] MEDS: 0.9 % Sodium Chloride 1,000 ML IVC SCH ×2 (21:41→23:22)
[2019-12-24 21:44] LABS: Estimated Average Glucose 189 mg/dl
[2019-12-24] MEDS ORDERED: Aspirin 325 MG TABLET PO ONE (22:02)
[2019-12-25] MEDS: Insulin LISPRO 300 UNITS/3 ML VIAL SQ SCH ×4 (01:02→16:16)
[2019-12-25 01:56] LABS: Basophils % 0.5 %; Eosinophils # 0.1 K/mcL (0.0-0.6); Eosinophils % 2.3 %; Hematocrit 31.5 % (35.3-44.9); Hemoglobin 10.5 g/dL (11.5-15.4); Immature Granulocytes % 0.5 % (0-4); Lymphocytes % 15.5 %; Mean Corpuscular HGB Conc 33.3 g/dL (31.6-35.5); Mean Corpuscular Hemoglobin 29.2 pg (28.0-33.3); Mean Corpuscular Volume 87.5 fL (83.0-100.0); Monocytes # 0.3 K/mcL (0.0-1.3); Monocytes % 4.7 %; Neutrophils # 4.7 K/mcL (1.6-8.9); Platelet Count 197 K/mcL (140-400); Red Cell Distribution Width 13.8 % (11.5-14.5); Segmented Neutrophils % 76.5 %; White Blood Count 6.2 K/mcL (4.3-11.1)
[2019-12-25 02:20] LABS: BUN/Creatinine Ratio 28 (6-26); Blood Urea Nitrogen 13 mg/dL (8-23); Calcium 8.2 mg/dL (8.6-10.3); Carbon Dioxide 25 mEq/L (23-29); Chloride 109 mEq/L (98-107); Glucose 244 mg/dL (70-105); Osmolality,Calculated 298 (280-300); Potassium 3.5 mEq/L (3.5-5.1); Sodium 140 mEq/L (136-145); eGFR For African Americans > 60 (> 60); eGFR For Non-African Americans > 60 (> 60)
[2019-12-25 02:23] LABS: Troponin I 0.07 ng/mL (< 0.04)
[2019-12-25] MEDS: Piperacillin/Tazobactam 3.375 GM in 0.9 % Sodium Chloride Mini Bag 100 ML IVPB SCH ×4 (02:44→23:14)
[2019-12-25 03:56] LABS: Bilirubin,Urine Negative (Negative); Blood,Urine Negative (Negative); Clarity,Urine Clear (Clear); Color,Urine Yellow (Yellow); Glucose,Urine (UA) 500 mg/dL (Normal); Ketones,Urine Negative (Negative); Leukocyte Esterase,Urine Trace (Negative); Nitrite,Urine Negative (Negative); PH,Urine 6.5 pH Units (5.0-8.0); Protein,Urine 30 mg/dL (Neg-Trace); Urobilinogen,Urine Normal (Normal)
[2019-12-25 03:58] LABS: Bacteria,Urine None Seen per hpf (None-Few); Hyaline Casts,Urine None Seen per lpf (None-Few); Squamous Epithelial Cell,Urine Many per lpf (None-Few)
[2019-12-25 04:11] LABS: Amphetamine Screen,Urine Negative ng/mL (Cutoff=1000); Barbiturate Screen,Urine Negative ng/mL (Cutoff=200); Benzodiazepines Screen,Urine Negative ng/mL (Cutoff=200); Cannabinoid Screen,Urine Negative ng/mL (Cutoff = 50); Cocaine Screen,Urine Negative ng/mL (Cutoff= 300); Opiate Screen,Urine Negative ng/mL (Cutoff=300); Phencyclidine Screen,Urine Negative ng/mL (Cutoff=25)
[2019-12-25] MEDS: Nicotine 14 MG PATCH.TD24 TD SCH (07:56)
[2019-12-25] MEDS: Vancomycin 1,250 MG/262.5 ML IV.SOLN IVPB SCH ×2 (09:47→22:32)
[2019-12-25] MEDS ORDERED: Sennosides/Docusate Sodium TABLET PO PRN (14:39)
[2019-12-25] MEDS: Gabapentin 400 MG CAPSULE PO SCH ×2 (15:45→22:31)
[2019-12-25] MEDS: *HR* Heparin 5,000 UNIT/ML VIAL SQ SCH (17:18)
[2019-12-25] MEDS ORDERED: Insulin LISPRO 300 UNITS/3 ML VIAL SQ SCH (21:00)
[2019-12-26] MEDS: *HR* Heparin 5,000 UNIT/ML VIAL SQ SCH (06:51)
[2019-12-26 06:57] LABS: % Iron Saturation 22 % (15-50); BUN/Creatinine Ratio 19 (6-26); Blood Urea Nitrogen 10 mg/dL (8-23); Calcium 8.4 mg/dL (8.6-10.3); Carbon Dioxide 25 mEq/L (23-29); Chloride 106 mEq/L (98-107); Glucose 275 mg/dL (70-105); Iron 45 mcg/dL (50-170); Osmolality,Calculated 291 (280-300); Potassium 3.4 mEq/L (3.5-5.1); Sodium 136 mEq/L (136-145); Transferrin 145 mg/dL (203-362); eGFR For African Americans > 60 (> 60); eGFR For Non-African Americans > 60 (> 60)
[2019-12-26 07:10] LABS: Ferritin 81 ng/mL (10-120)
[2019-12-26] MEDS: Gabapentin 400 MG CAPSULE PO SCH (07:50)
[2019-12-26] MEDS: Nicotine 14 MG PATCH.TD24 TD SCH (07:50)
[2019-12-26] MEDS: Piperacillin/Tazobactam 3.375 GM in 0.9 % Sodium Chloride Mini Bag 100 ML IVPB SCH (07:51)
[2019-12-26] MEDS: Insulin LISPRO 300 UNITS/3 ML VIAL SQ SCH ×2 (07:51→12:24)
[2019-12-26] MEDS ORDERED: Aspirin Enteric Coated 81 MG Tablet PO SCH (09:00)
[2019-12-26] MEDS: Vancomycin 1,250 MG/262.5 ML IV.SOLN IVPB SCH (11:01)
[2019-12-26 11:21] VITALS: BP 109/61
[2019-12-26] MEDS ORDERED: Aminoglycoside Consult 1 EACH MC ONE (15:17)
== END 2019-12-26 15:18 | disposition home health service (06) | DRG 637 ==
LOC: 3ANU → SUATTDRO 18:59
PROVIDERS: ADMIT Internal Medicine; ATTEND Internal Medicine

== ENCOUNTER 2020-07-02 00:36 | Inpatient (IN) ==
[2020-07-02] MEDS ORDERED: Piperacillin/Tazobactam 3.375 GM in 0.9 % Sodium Chloride Mini Bag 100 ML IVPB ONE (01:24)
[2020-07-02] MEDS ORDERED: Azithromycin 500 MG in 0.9 % Sodium Chloride 250 ML IVPB ONE (01:25)
[2020-07-02 01:37] LABS: Basophils % 0.1 %; Eosinophils # 0.1 K/mcL (0.0-0.6); Eosinophils % 0.3 %; Hematocrit 38.5 % (35.3-44.9); Hemoglobin 12.2 g/dL (11.5-15.4); Immature Granulocytes % 0.7 % (0-4); Lymphocytes # 1.3 K/mcL (0.6-4.6); Lymphocytes % 8.5 %; Mean Corpuscular HGB Conc 31.7 g/dL (31.6-35.5); Mean Corpuscular Volume 85.2 fL (83.0-100.0); Mean Platelet Volume 9.8 fL (9.4-12.4); Monocytes # 0.8 K/mcL (0.0-1.3); Monocytes % 5.2 %; Neutrophils # 12.6 K/mcL (1.6-8.9); Platelet Count 254 K/mcL (140-400); Red Blood Count 4.52 M/mcL (3.82-4.97); Red Cell Distribution Width 15.1 % (11.5-14.5); Segmented Neutrophils % 85.2 %; White Blood Count 14.7 K/mcL (4.3-11.1)
[2020-07-02 01:41] LABS: VBG HCO3 29 mEq/L (21-27); VBG PCO2 51 mmHg (41-51); VBG PH 7.37 pH Units (7.32-7.42); VBG PO2 40 mmHg (25-50)
[2020-07-02 01:58] LABS: BUN/Creatinine Ratio 24 (6-26); Blood Urea Nitrogen 15 mg/dL (8-23); Calcium 8.9 mg/dL (8.6-10.3); Carbon Dioxide 26 mEq/L (23-29); Chloride 96 mEq/L (98-107); Glucose 379 mg/dL (70-105); Osmolality,Calculated 290 (280-300); Potassium 3.5 mEq/L (3.5-5.1); Sodium 132 mEq/L (136-145); eGFR For African Americans > 60 (> 60); eGFR For Non-African Americans > 60 (> 60)
[2020-07-02 02:05] LABS: Troponin I 0.07 ng/mL (< 0.04)
[2020-07-02] MEDS ORDERED: 0.9 % Sodium Chloride 1,000 ML IVC ONE (03:51)
[2020-07-02] MEDS ORDERED: Ipratropium/Albuterol Neb 3 ML IH ONE (03:52)
[2020-07-02 04:28] LABS: Bilirubin,Urine Negative (Negative); Blood,Urine Small (Negative); Clarity,Urine Clear (Clear); Color,Urine Light-Yellow (Yellow); Glucose,Urine (UA) >=1000 mg/dL (Normal); Ketones,Urine Negative (Negative); Leukocyte Esterase,Urine Negative (Negative); Nitrite,Urine Negative (Negative); PH,Urine 6.5 pH Units (5.0-8.0); Protein,Urine 200 mg/dL (Neg-Trace); Specific Gravity,Urine 1.018 (1.010-1.025); Urobilinogen,Urine Normal (Normal); WBC,Urine 0-3 per hpf (0-3)
[2020-07-02] MEDS ORDERED: Dextrose Gel 15 GM/37.5 ML TUBE PO PRN ×2 (04:47)
[2020-07-02] MEDS ORDERED: Acetaminophen 325 MG TABLET PO PRN (04:47)
[2020-07-02] MEDS ORDERED: Naloxone 0.4 MG/ML INJ IVP PRN (04:47)
[2020-07-02] MEDS ORDERED: Ondansetron 4 MG/2 ML VIAL IVP PRN (04:47)
[2020-07-02] MEDS ORDERED: *HR* Dextrose 50 % in Water (Vial) 50 ML VIAL IVP PRN ×2 (04:47→18:22)
[2020-07-02] MEDS ORDERED: D5% in Water 1,000 ML IVC PRN (04:47)
[2020-07-02] MEDS ORDERED: Benzonatate 100 MG CAPSULE PO PRN (05:17)
[2020-07-02 05:23] LABS: Adenovirus Not Detected (Not Detect); Bordetella Pertussis Not Detected (Not Detect); Chlamydophila pneumoniae Not Detected (Not Detect); Coronavirus 229E Not Detected (Not Detect); Coronavirus HKU1 Not Detected (Not Detect); Coronavirus NL63 Not Detected (Not Detect); Coronavirus OC43 Not Detected (Not Detect); Human Metapneumovirus Not Detected (Not Detect); Human Rhinovirus/Enterovirus Not Detected (Not Detect); Influenza A Subtype 2009 H1 Not Detected (Not Detect); Influenza B Not Detected (Not Detect); Mycoplasma pneumoniae Not Detected (Not Detect); Parainfluenza Virus 1 Not Detected (Not Detect); Parainfluenza Virus 2 Not Detected (Not Detect); Parainfluenza Virus 3 Not Detected (Not Detect); Parainfluenza Virus 4 Not Detected (Not Detect); Respiratory Syncytial Virus Not Detected (Not Detect); SARS-CoV-2 Not Detected (Not Detect)
[2020-07-02] MEDS ORDERED: Insulin LISPRO 300 UNITS/3 ML VIAL SQ SCH ×4 (06:00→21:00)
[2020-07-02] MEDS: *HR* Heparin 5,000 UNIT/ML VIAL SQ SCH ×2 (07:23→17:57)
[2020-07-02] MEDS: Aspirin 81 MG TAB.CHEW PO SCH (07:24)
[2020-07-02] MEDS: Piperacillin/Tazobactam 3.375 GM in 0.9 % Sodium Chloride Mini Bag 100 ML IVPB SCH ×2 (09:31→17:57)
[2020-07-02] MEDS: Insulin LISPRO 300 UNITS/3 ML VIAL SQ SCH ×2 (09:49→12:07)
[2020-07-02] MEDS ORDERED: Insulin DETEMIR 100 UNIT/ML X5UNITS SQ ONE (10:00)
[2020-07-02] MEDS: Silvasorb 44.4 ML TUBE TP SCH (14:51)
[2020-07-02] MEDS ORDERED: 0.9 % Sodium Chloride 1,000 ML IV ONE (18:21)
[2020-07-02] MEDS: Insulin Human Regular 100 UNIT in 0.9 % Sodium Chloride 100 ML IVC SCH (20:04)
[2020-07-02] MEDS: Gabapentin 400 MG CAPSULE PO SCH (20:10)
[2020-07-02] MEDS ORDERED: Insulin DETEMIR 100 UNIT/ML X5UNITS SQ SCH (21:00)
[2020-07-03 01:45] LABS: Basophils % 0.1 %; Hematocrit 33.7 % (35.3-44.9); Hemoglobin 10.7 g/dL (11.5-15.4); Immature Granulocytes % 0.7 % (0-4); Lymphocytes # 1.1 K/mcL (0.6-4.6); Lymphocytes % 8.6 %; Mean Corpuscular HGB Conc 31.8 g/dL (31.6-35.5); Mean Corpuscular Hemoglobin 26.8 pg (28.0-33.3); Mean Corpuscular Volume 84.5 fL (83.0-100.0); Mean Platelet Volume 9.9 fL (9.4-12.4); Monocytes # 0.4 K/mcL (0.0-1.3); Monocytes % 2.9 %; Neutrophils # 10.8 K/mcL (1.6-8.9); Platelet Count 245 K/mcL (140-400); Red Blood Count 3.99 M/mcL (3.82-4.97); Red Cell Distribution Width 14.7 % (11.5-14.5); Segmented Neutrophils % 87.7 %; White Blood Count 12.3 K/mcL (4.3-11.1)
[2020-07-03 02:03] LABS: BUN/Creatinine Ratio 44 (6-26); Blood Urea Nitrogen 21 mg/dL (8-23); Calcium 8.7 mg/dL (8.6-10.3); Carbon Dioxide 26 mEq/L (23-29); Chloride 102 mEq/L (98-107); Glucose 120 mg/dL (70-105); Magnesium 1.3 mg/dL (1.6-2.6); Osmolality,Calculated 290 (280-300); Phosphorous 2.7 mg/dL (2.7-4.5); Sodium 138 mEq/L (136-145); eGFR For African Americans > 60 (> 60); eGFR For Non-African Americans > 60 (> 60)
[2020-07-03] MEDS: Piperacillin/Tazobactam 3.375 GM in 0.9 % Sodium Chloride Mini Bag 100 ML IVPB SCH ×3 (02:27→17:32)
[2020-07-03] MEDS: *HR* Heparin 5,000 UNIT/ML VIAL SQ SCH ×2 (06:07→17:32)
[2020-07-03] MEDS: Insulin Human Regular 100 UNIT in 0.9 % Sodium Chloride 100 ML IVC SCH ×2 (07:09→18:51)
[2020-07-03] MEDS: Cholecalciferol (D-3) 1,000 UNIT (25MCG) TABLET PO SCH (08:07)
[2020-07-03] MEDS: Gabapentin 400 MG CAPSULE PO SCH ×3 (08:07→21:25)
[2020-07-03] MEDS: Aspirin 81 MG TAB.CHEW PO SCH (08:07)
[2020-07-03] MEDS: Nicotine 21 MG PATCH.TD24 TD SCH (08:08)
[2020-07-03] MEDS: Silvasorb 44.4 ML TUBE TP SCH (08:08)
[2020-07-03 08:16] LABS: Estimated Average Glucose 235 mg/dl
[2020-07-03] MEDS ORDERED: MethylPREDNISolone 40 MG/ML VIAL IVP SCH (09:00)
[2020-07-04] MEDS: Piperacillin/Tazobactam 3.375 GM in 0.9 % Sodium Chloride Mini Bag 100 ML IVPB SCH ×3 (02:06→17:27)
[2020-07-04 03:49] LABS: Basophils % 0.2 %; Eosinophils % 0.1 %; Hematocrit 36.1 % (35.3-44.9); Mean Platelet Volume 10.6 fL (9.4-12.4); Segmented Neutrophils % 76.9 %
[2020-07-04 03:51] LABS: Hemoglobin 11.5 g/dL (11.5-15.4); Immature Granulocytes % 0.6 % (0-4); Immature Platelets 4.4 % (1.1-6.1); Lymphocytes # 1.9 K/mcL (0.6-4.6); Lymphocytes % 17.7 %; Mean Corpuscular HGB Conc 31.9 g/dL (31.6-35.5); Mean Corpuscular Hemoglobin 27.6 pg (28.0-33.3); Mean Corpuscular Volume 86.8 fL (83.0-100.0); Monocytes # 0.5 K/mcL (0.0-1.3); Monocytes % 4.5 %; Neutrophils # 8.3 K/mcL (1.6-8.9); Platelet Count 265 K/mcL (140-400); Red Blood Count 4.16 M/mcL (3.82-4.97); White Blood Count 10.8 K/mcL (4.3-11.1)
[2020-07-04 04:20] LABS: BUN/Creatinine Ratio 49 (6-26); Blood Urea Nitrogen 28 mg/dL (8-23); Calcium 8.6 mg/dL (8.6-10.3); Carbon Dioxide 23 mEq/L (23-29); Chloride 105 mEq/L (98-107); Glucose 85 mg/dL (70-105); Magnesium 1.7 mg/dL (1.6-2.6); Osmolality,Calculated 287 (280-300); Sodium 136 mEq/L (136-145); eGFR For African Americans > 60 (> 60); eGFR For Non-African Americans > 60 (> 60)
[2020-07-04] MEDS: *HR* Heparin 5,000 UNIT/ML VIAL SQ SCH ×2 (07:09→17:27)
[2020-07-04] MEDS: Nicotine 21 MG PATCH.TD24 TD SCH (07:55)
[2020-07-04] MEDS: Cholecalciferol (D-3) 1,000 UNIT (25MCG) TABLET PO SCH (07:56)
[2020-07-04] MEDS: Aspirin 81 MG TAB.CHEW PO SCH (07:56)
[2020-07-04] MEDS: Gabapentin 400 MG CAPSULE PO SCH ×3 (07:56→23:01)
[2020-07-04] MEDS: Silvasorb 44.4 ML TUBE TP SCH (07:57)
[2020-07-04] MEDS ORDERED: Dextrose Gel 15 GM/37.5 ML TUBE PO PRN ×2 (09:11)
[2020-07-04] MEDS ORDERED: D5% in Water 1,000 ML IVC PRN (09:11)
[2020-07-04] MEDS ORDERED: *HR* Dextrose 50 % in Water (Vial) 50 ML VIAL IVP PRN (09:11)
[2020-07-04] MEDS: Insulin DETEMIR 100 UNIT/ML X5UNITS SQ SCH ×2 (10:18→21:09)
[2020-07-04] MEDS: Insulin LISPRO 300 UNITS/3 ML VIAL SQ SCH ×2 (11:08→16:33)
[2020-07-04 17:05] LABS: VBG HCO3 27 mEq/L (21-27); VBG PCO2 39 mmHg (41-51); VBG PH 7.45 pH Units (7.32-7.42); VBG PO2 153 mmHg (25-50)
[2020-07-05] MEDS: Piperacillin/Tazobactam 3.375 GM in 0.9 % Sodium Chloride Mini Bag 100 ML IVPB SCH (03:05)
[2020-07-05] MEDS: *HR* Heparin 5,000 UNIT/ML VIAL SQ SCH ×2 (05:06→17:30)
[2020-07-05 07:25] LABS: Basophils % 0.3 %; Eosinophils # 0.1 K/mcL (0.0-0.6); Eosinophils % 1.1 %; Hemoglobin 11.7 g/dL (11.5-15.4); Immature Granulocytes % 1.1 % (0-4); Lymphocytes # 2.8 K/mcL (0.6-4.6); Lymphocytes % 37.8 %; Mean Corpuscular HGB Conc 31.6 g/dL (31.6-35.5); Mean Corpuscular Hemoglobin 27.5 pg (28.0-33.3); Mean Corpuscular Volume 87.1 fL (83.0-100.0); Mean Platelet Volume 9.6 fL (9.4-12.4); Monocytes # 0.5 K/mcL (0.0-1.3); Monocytes % 7.2 %; Neutrophils # 3.9 K/mcL (1.6-8.9); Nucleated Red Blood Cells 0.3 /100 WBC (0); Platelet Count 275 K/mcL (140-400); Red Blood Count 4.25 M/mcL (3.82-4.97); Red Cell Distribution Width 15.1 % (11.5-14.5); Segmented Neutrophils % 52.5 %; White Blood Count 7.3 K/mcL (4.3-11.1)
[2020-07-05 07:38] LABS: BUN/Creatinine Ratio 42 (6-26); Blood Urea Nitrogen 24 mg/dL (8-23); Calcium 8.9 mg/dL (8.6-10.3); Carbon Dioxide 27 mEq/L (23-29); Chloride 106 mEq/L (98-107); Glucose 106 mg/dL (70-105); Magnesium 1.4 mg/dL (1.6-2.6); Osmolality,Calculated 292 (280-300); Potassium 3.7 mEq/L (3.5-5.1); Sodium 139 mEq/L (136-145); eGFR For African Americans > 60 (> 60); eGFR For Non-African Americans > 60 (> 60)
[2020-07-05] MEDS: Insulin LISPRO 300 UNITS/3 ML VIAL SQ SCH ×3 (07:43→14:42)
[2020-07-05] MEDS: Aspirin 81 MG TAB.CHEW PO SCH (07:50)
[2020-07-05] MEDS: Cholecalciferol (D-3) 1,000 UNIT (25MCG) TABLET PO SCH (07:50)
[2020-07-05] MEDS: Gabapentin 400 MG CAPSULE PO SCH ×3 (07:50→20:26)
[2020-07-05] MEDS: Nicotine 21 MG PATCH.TD24 TD SCH (07:50)
[2020-07-05] MEDS: Insulin DETEMIR 100 UNIT/ML X5UNITS SQ SCH (07:55)
[2020-07-05] MEDS: Doxycycline 100 MG CAPSULE PO SCH ×2 (08:58→20:26)
[2020-07-05] MEDS: Silvasorb 44.4 ML TUBE TP SCH (17:30)
[2020-07-05] MEDS ORDERED: Lidocaine 1% 0 ML ONE (18:35)
[2020-07-05] MEDS ORDERED: Bupivacaine/EPI 1:200k 0.25% 50 ML VIAL ONE (18:35)
[2020-07-05] MEDS ORDERED: Vancomycin 1,000 MG VIAL ONE (18:35)
[2020-07-06] MEDS: Insulin DETEMIR 100 UNIT/ML X5UNITS SQ SCH ×2 (03:41→08:07)
[2020-07-06] MEDS: *HR* Heparin 5,000 UNIT/ML VIAL SQ SCH ×2 (04:51→18:24)
[2020-07-06 07:08] LABS: Basophils % 0.3 %; Eosinophils # 0.2 K/mcL (0.0-0.6); Eosinophils % 2.3 %; Hematocrit 37.7 % (35.3-44.9); Lymphocytes # 3.2 K/mcL (0.6-4.6); Lymphocytes % 35.3 %; Mean Corpuscular HGB Conc 31.8 g/dL (31.6-35.5); Mean Corpuscular Hemoglobin 27.5 pg (28.0-33.3); Mean Corpuscular Volume 86.3 fL (83.0-100.0); Mean Platelet Volume 9.5 fL (9.4-12.4); Monocytes # 0.6 K/mcL (0.0-1.3); Monocytes % 6.2 %; Neutrophils # 5.1 K/mcL (1.6-8.9); Platelet Count 325 K/mcL (140-400); Red Blood Count 4.37 M/mcL (3.82-4.97); Red Cell Distribution Width 15.2 % (11.5-14.5); Segmented Neutrophils % 54.9 %; White Blood Count 9.2 K/mcL (4.3-11.1)
[2020-07-06 07:16] LABS: BUN/Creatinine Ratio 33 (6-26); Blood Urea Nitrogen 17 mg/dL (8-23); Calcium 8.7 mg/dL (8.6-10.3); Carbon Dioxide 25 mEq/L (23-29); Chloride 102 mEq/L (98-107); Glucose 266 mg/dL (70-105); Magnesium 1.4 mg/dL (1.6-2.6); Osmolality,Calculated 291 (280-300); Potassium 3.9 mEq/L (3.5-5.1); Sodium 135 mEq/L (136-145); eGFR For African Americans > 60 (> 60); eGFR For Non-African Americans > 60 (> 60)
[2020-07-06] MEDS: Doxycycline 100 MG CAPSULE PO SCH (08:07)
[2020-07-06] MEDS: Gabapentin 400 MG CAPSULE PO SCH ×2 (08:07→16:47)
[2020-07-06] MEDS: Cholecalciferol (D-3) 1,000 UNIT (25MCG) TABLET PO SCH (08:07)
[2020-07-06] MEDS: Aspirin 81 MG TAB.CHEW PO SCH (08:07)
[2020-07-06] MEDS: Nicotine 21 MG PATCH.TD24 TD SCH (08:07)
[2020-07-06] MEDS: Silvasorb 44.4 ML TUBE TP SCH (08:08)
[2020-07-06] MEDS: Insulin LISPRO 300 UNITS/3 ML VIAL SQ SCH ×3 (08:36→16:47)
[2020-07-06 18:55] VITALS: BP 144/72
== END 2020-07-06 20:39 | disposition home health service (06) | DRG 853 ==
LOC: EMEROOARM 00:36 → 2ANU 00:36 → SUATTDRO 05:40 → 2ANU 06:18
PROVIDERS: ADMIT Student in an Organized Health Care Education/Training Program; ATTEND Pharmacist

== ENCOUNTER 2020-10-12 19:30 | Inpatient (IN) ==
[2020-10-12] MEDS ORDERED: Isovue-370 500 ML BOTTLE IVP ONE (23:08)
[2020-10-12] MEDS ORDERED: Piperacillin/Tazobactam 3.375 GM in Water for inj. (sterile) 20 ML IVP ONE (23:09)
[2020-10-12] MEDS ORDERED: Vancomycin 1,500 MG/265 ML IV.SOLN IVPB ONE (23:14)
[2020-10-12] MEDS ORDERED: 0.9 % Sodium Chloride 1,000 ML IVC ONE (23:19)
[2020-10-12] MEDS ORDERED: 0.9 % Sodium Chloride 500 ML IVC ONE (23:20)
[2020-10-13 00:25] LABS: Basophils % 0.2 %; Eosinophils % 0.2 %; Hematocrit 39.1 % (35.3-44.9); Hemoglobin 12.4 g/dL (11.5-15.4); Immature Granulocytes % 0.6 % (0-4); Lymphocytes # 1.7 K/mcL (0.6-4.6); Lymphocytes % 13.1 %; Mean Corpuscular HGB Conc 31.7 g/dL (31.6-35.5); Mean Corpuscular Hemoglobin 26.3 pg (28.0-33.3); Mean Platelet Volume 9.9 fL (9.4-12.4); Monocytes # 0.8 K/mcL (0.0-1.3); Monocytes % 5.8 %; Neutrophils # 10.3 K/mcL (1.6-8.9); Platelet Count 400 K/mcL (140-400); Red Blood Count 4.71 M/mcL (3.82-4.97); Red Cell Distribution Width 13.6 % (11.5-14.5); Segmented Neutrophils % 80.1 %; White Blood Count 12.9 K/mcL (4.3-11.1)
[2020-10-13 00:26] LABS: INR 1.5; Prothrombin Time 17.1 Seconds (9.4-12.1)
[2020-10-13 00:29] LABS: Activated Partial Thrombo Time 35.3 Seconds (26.0-36.0)
[2020-10-13 00:33] LABS: Bacteria,Urine Few per hpf (None-Few); Bilirubin,Urine Negative (Negative); Blood,Urine Moderate (Negative); Clarity,Urine Turbid (Clear); Color,Urine Yellow (Yellow); Glucose,Urine (UA) >=1000 mg/dL (Normal); Hyaline Casts,Urine Few per lpf (None Seen); Ketones,Urine Negative (Negative); Leukocyte Esterase,Urine Small (Negative); Mucus,Urine Few per lpf (None-Few); Nitrite,Urine Negative (Negative); PH,Urine 5.5 pH Units (5.0-8.0); Protein,Urine 70 mg/dL (Neg-Trace); Specific Gravity,Urine 1.026 (1.010-1.025); Squamous Epithelial Cell,Urine Few per hpf (None-Few); Urobilinogen,Urine Normal (Normal); WBC,Urine 15-30 per hpf (0-3)
[2020-10-13 00:45] LABS: Alanine Aminotransferase 8 Units/L (7-52); Albumin 2.7 g/dL (3.5-5.7); Albumin/Globulin Ratio 0.5 (1.1-2.2); Alkaline Phosphatase 92 Units/L (34-104); Aspartate Amino Transferase 12 Units/L (13-39); BUN/Creatinine Ratio 20 (6-26); Bilirubin,Direct 0.2 mg/dL (0.0-0.2); Bilirubin,Indirect 0.7 mg/dL (0.0-1.0); Bilirubin,Total 0.9 mg/dL (0.3-1.0); Blood Urea Nitrogen 13 mg/dL (8-23); Calcium 8.7 mg/dL (8.6-10.3); Carbon Dioxide 26 mEq/L (23-29); Chloride 93 mEq/L (98-107); Globulin 5.1 g/dL (2.4-3.5); Glucose 490 mg/dL (70-105); Lipase 3 Units/L (11-82); Magnesium 1.4 mg/dL (1.6-2.6); Osmolality,Calculated 290 (280-300); Potassium 3.5 mEq/L (3.5-5.1); Sodium 129 mEq/L (136-145); Total Protein 7.8 g/dL (6.4-8.9); Troponin I 0.07 ng/mL (< 0.04); eGFR For African Americans > 60 (> 60); eGFR For Non-African Americans > 60 (> 60)
[2020-10-13] MEDS ORDERED: Naloxone 0.4 MG/ML INJ IVP PRN (07:15)
[2020-10-13] MEDS ORDERED: Dextrose Gel 15 GM/37.5 ML TUBE PO PRN ×2 (07:17)
[2020-10-13] MEDS ORDERED: *HR* Dextrose 50 % in Water (Vial) 50 ML VIAL IVP PRN (07:17)
[2020-10-13] MEDS ORDERED: D5% in Water 1,000 ML IVC PRN (07:17)
[2020-10-13] MEDS: *HR* Heparin 5,000 UNIT/ML VIAL SQ SCH ×2 (08:00→18:37)
[2020-10-13] MEDS: Insulin LISPRO 300 UNITS/3 ML VIAL SUBQ SCH ×4 (08:02→21:54)
[2020-10-13 08:39] LABS: Troponin I 0.05 ng/mL (< 0.04)
[2020-10-13] MEDS ORDERED: 0.9 % Sodium Chloride 1,000 ML IV ONE (08:44)
[2020-10-13] MEDS: Piperacillin/Tazobactam 3.375 GM in 0.9 % Sodium Chloride Mini Bag 100 ML IVPB SCH ×2 (09:27→18:37)
[2020-10-13 11:09] LABS: C-Reactive Protein < 5 mg/L (Less than 10)
[2020-10-13] MEDS: Vancomycin 1,250 MG/262.5 ML IV.SOLN IVPB SCH (11:54)
[2020-10-13] MEDS: Insulin DETEMIR 100 UNIT/ML X5UNITS SUBQ SCH (21:56)
[2020-10-14] MEDS: Vancomycin 1,250 MG/262.5 ML IV.SOLN IVPB SCH ×2 (00:51→13:50)
[2020-10-14] MEDS: *HR* Heparin 5,000 UNIT/ML VIAL SQ SCH ×3 (01:17→16:30)
[2020-10-14] MEDS: Piperacillin/Tazobactam 3.375 GM in 0.9 % Sodium Chloride Mini Bag 100 ML IVPB SCH ×3 (01:17→16:31)
[2020-10-14 03:05] LABS: Basophils % 0.2 %; Eosinophils # 0.2 K/mcL (0.0-0.6); Eosinophils % 1.8 %; Hematocrit 31.4 % (35.3-44.9); Immature Granulocytes % 0.5 % (0-4); Lymphocytes # 2.3 K/mcL (0.6-4.6); Lymphocytes % 20.1 %; Mean Corpuscular HGB Conc 30.9 g/dL (31.6-35.5); Mean Corpuscular Hemoglobin 26.6 pg (28.0-33.3); Mean Corpuscular Volume 86.3 fL (83.0-100.0); Mean Platelet Volume 9.8 fL (9.4-12.4); Monocytes # 0.7 K/mcL (0.0-1.3); Platelet Count 332 K/mcL (140-400); Red Blood Count 3.64 M/mcL (3.82-4.97); Red Cell Distribution Width 13.6 % (11.5-14.5); Segmented Neutrophils % 71.4 %; White Blood Count 11.2 K/mcL (4.3-11.1)
[2020-10-14 03:30] LABS: BUN/Creatinine Ratio 20 (6-26); Blood Urea Nitrogen 9 mg/dL (8-23); Carbon Dioxide 25 mEq/L (23-29); Chloride 103 mEq/L (98-107); Glucose 188 mg/dL (70-105); Osmolality,Calculated 284 (280-300); Potassium 3.5 mEq/L (3.5-5.1); Sodium 135 mEq/L (136-145); eGFR For African Americans > 60 (> 60); eGFR For Non-African Americans > 60 (> 60)
[2020-10-14 03:38] LABS: Hemoglobin 9.7 g/dL (11.5-15.4)
[2020-10-14] MEDS: Insulin LISPRO 300 UNITS/3 ML VIAL SUBQ SCH ×4 (08:06→21:27)
[2020-10-14 08:32] LABS: Estimated Average Glucose 306 mg/dl; Hemoglobin A1C 12.3 %
[2020-10-14] MEDS ORDERED: Ketorolac 15 MG/ML VIAL IVP PRN (09:28)
[2020-10-14] MEDS ORDERED: Vancomycin 1,500 MG/265 ML IV.SOLN IVPB SCH (14:00)
[2020-10-14] MEDS: Gabapentin 400 MG CAPSULE PO SCH ×2 (14:31→21:31)
[2020-10-14] MEDS ORDERED: ceFAZolin 1,000 MG, Sodium Chloride IRRigation 1,000 ML IR ONE (19:35)
[2020-10-14] MEDS: Insulin DETEMIR 100 UNIT/ML X5UNITS SUBQ SCH (21:28)
[2020-10-14] MEDS ORDERED: *HR* Propofol 200 MG/20 ML VIAL IVP ONE (21:45)
[2020-10-14] MEDS ORDERED: *HR* FentaNYL (PF) 100 MCG/2 ML VIAL ONE ×2 (21:45→23:05)
[2020-10-14] MEDS ORDERED: Lidocaine -MPF 2% 2 ML VIAL ONE (21:45)
[2020-10-14] MEDS ORDERED: Acetaminophen IV 1,000 MG/100 ML BAG IVPB ONE (21:54)
[2020-10-14] MEDS ORDERED: Famotidine 20 MG/2 ML VIAL ONE (21:54)
[2020-10-14] MEDS ORDERED: Dexamethasone 4 MG/ML VIAL ONE (22:23)
[2020-10-14] MEDS ORDERED: Ondansetron 4 MG/2 ML VIAL ONE (22:23)
[2020-10-14] MEDS ORDERED: Ondansetron 4 MG/2 ML VIAL IVP PRN (23:43)
[2020-10-14] MEDS ORDERED: *HR* HYDROMORPHONE 2 MG/ML VIAL ONE (23:49)
[2020-10-15] MEDS: *HR* FentaNYL (PF) 100 MCG/2 ML VIAL IVP PRN ×2 (00:38→01:04)
[2020-10-15] MEDS ORDERED: Dexamethasone 4 MG/ML VIAL IVP ONE (01:15)
[2020-10-15] MEDS: *HR* Heparin 5,000 UNIT/ML VIAL SQ SCH ×4 (01:29→21:01)
[2020-10-15] MEDS: Piperacillin/Tazobactam 3.375 GM in 0.9 % Sodium Chloride Mini Bag 100 ML IVPB SCH ×4 (01:29→23:19)
[2020-10-15] MEDS ORDERED: Dextrose Gel 15 GM/37.5 ML TUBE PO PRN ×2 (01:35)
[2020-10-15] MEDS ORDERED: D5% in Water 1,000 ML IVC PRN (01:35)
[2020-10-15] MEDS ORDERED: Naloxone 0.4 MG/ML INJ IVP PRN (01:35)
[2020-10-15] MEDS ORDERED: *HR* FentaNYL (PF) 100 MCG/2 ML VIAL IVP PRN (01:35)
[2020-10-15] MEDS ORDERED: Ketorolac 15 MG/ML VIAL IVP PRN (01:35)
[2020-10-15] MEDS ORDERED: Ondansetron 4 MG/2 ML VIAL IVP PRN (01:35)
[2020-10-15] MEDS ORDERED: ceFAZolin 1,000 MG, Sodium Chloride IRRigation 1,000 ML IR ONE (01:35)
[2020-10-15] MEDS ORDERED: *HR* Dextrose 50 % in Water (Vial) 50 ML VIAL IVP PRN (01:35)
[2020-10-15] MEDS ORDERED: Vancomycin 1,500 MG/265 ML IV.SOLN IVPB SCH (02:00)
[2020-10-15] MEDS: *HR* HYDROmorphone (PF) 1 MG/ML SYRINGE IVP PRN ×4 (02:32→11:39)
[2020-10-15 02:41] LABS: Basophils % 0.2 %; Eosinophils # 0.1 K/mcL (0.0-0.6); Eosinophils % 0.5 %; Hematocrit 32.8 % (35.3-44.9); Hemoglobin 9.9 g/dL (11.5-15.4); Immature Granulocytes % 0.3 % (0-4); Lymphocytes # 0.7 K/mcL (0.6-4.6); Lymphocytes % 7.6 %; Mean Corpuscular HGB Conc 30.2 g/dL (31.6-35.5); Mean Corpuscular Hemoglobin 26.1 pg (28.0-33.3); Mean Corpuscular Volume 86.3 fL (83.0-100.0); Mean Platelet Volume 9.9 fL (9.4-12.4); Monocytes # 0.1 K/mcL (0.0-1.3); Monocytes % 1.3 %; Neutrophils # 8.3 K/mcL (1.6-8.9); Platelet Count 338 K/mcL (140-400); Red Cell Distribution Width 13.7 % (11.5-14.5); Segmented Neutrophils % 90.1 %; White Blood Count 9.2 K/mcL (4.3-11.1)
[2020-10-15 05:46] LABS: BUN/Creatinine Ratio 20 (6-26); Blood Urea Nitrogen 18 mg/dL (8-23); Calcium 7.7 mg/dL (8.6-10.3); Carbon Dioxide 22 mEq/L (23-29); Chloride 103 mEq/L (98-107); Glucose 419 mg/dL (70-105); Magnesium 2.1 mg/dL (1.6-2.6); Osmolality,Calculated 296 (280-300); Phosphorous 4.7 mg/dL (2.7-4.5); Potassium 4.5 mEq/L (3.5-5.1); Sodium 133 mEq/L (136-145); eGFR For African Americans > 60 (> 60); eGFR For Non-African Americans > 60 (> 60)
[2020-10-15] MEDS: Insulin LISPRO 300 UNITS/3 ML VIAL SUBQ SCH ×8 (08:06→21:06)
[2020-10-15] MEDS ORDERED: Perflutren Lipid Microsphere 1.3 ML in 0.9 % Sodium Chloride 8.7 ML IVP PRN (08:15)
[2020-10-15] MEDS ORDERED: Gabapentin 400 MG CAPSULE PO SCH (09:00)
[2020-10-15] MEDS: Insulin DETEMIR 100 UNIT/ML X5UNITS SUBQ SCH ×2 (11:39→20:57)
[2020-10-15] MEDS ORDERED: Insulin Human Regular 10 UNIT in 0.9 % Sodium Chloride 10 ML IV ONE (13:18)
[2020-10-15 13:25] LABS: Calcium 7.6 mg/dL (8.6-10.3); Potassium 4.1 mEq/L (3.5-5.1)
[2020-10-15] MEDS ORDERED: 0.9 % Sodium Chloride 1,000 ML IVC SCH (13:30)
[2020-10-15 14:23] LABS: Calcium 7.5 mg/dL (8.6-10.3); Potassium 4.3 mEq/L (3.5-5.1)
[2020-10-15 20:21] LABS: Calcium 7.8 mg/dL (8.6-10.3); Potassium 4.2 mEq/L (3.5-5.1)
[2020-10-15] MEDS ORDERED: Insulin DETEMIR 100 UNIT/ML X5UNITS SUBQ SCH (21:00)
[2020-10-15] MEDS: Gabapentin 300 MG CAPSULE PO SCH (21:01)
[2020-10-16] MEDS: Insulin LISPRO 300 UNITS/3 ML VIAL SUBQ SCH ×9 (01:33→21:22)
[2020-10-16 04:31] LABS: Basophils % 0.1 %; Hematocrit 30.8 % (35.3-44.9); Hemoglobin 9.6 g/dL (11.5-15.4); Immature Granulocytes % 0.7 % (0-4); Lymphocytes # 1.3 K/mcL (0.6-4.6); Lymphocytes % 9.7 %; Mean Corpuscular HGB Conc 31.2 g/dL (31.6-35.5); Mean Corpuscular Hemoglobin 26.8 pg (28.0-33.3); Mean Platelet Volume 10.1 fL (9.4-12.4); Monocytes # 0.5 K/mcL (0.0-1.3); Monocytes % 3.7 %; Neutrophils # 11.7 K/mcL (1.6-8.9); Platelet Count 333 K/mcL (140-400); Red Blood Count 3.58 M/mcL (3.82-4.97); Red Cell Distribution Width 13.6 % (11.5-14.5); Segmented Neutrophils % 85.8 %; White Blood Count 13.7 K/mcL (4.3-11.1)
[2020-10-16 04:46] LABS: Calcium 8.1 mg/dL (8.6-10.3); Magnesium 1.9 mg/dL (1.6-2.6); Phosphorous 3.7 mg/dL (2.7-4.5); Potassium 4.2 mEq/L (3.5-5.1)
[2020-10-16 04:47] LABS: Chol/HDL Ratio 7.3 (0-4.9)
[2020-10-16] MEDS: *HR* Heparin 5,000 UNIT/ML VIAL SQ SCH ×3 (06:28→21:21)
[2020-10-16] MEDS: *HR* HYDROmorphone (PF) 1 MG/ML SYRINGE IVP PRN ×2 (06:30→11:56)
[2020-10-16] MEDS: Piperacillin/Tazobactam 3.375 GM in 0.9 % Sodium Chloride Mini Bag 100 ML IVPB SCH ×2 (08:17→17:32)
[2020-10-16] MEDS: Gabapentin 300 MG CAPSULE PO SCH ×2 (08:18→21:21)
[2020-10-16] MEDS: Insulin DETEMIR 100 UNIT/ML X5UNITS SUBQ SCH ×2 (08:19→21:21)
[2020-10-16] MEDS ORDERED: Ringers Solution, Lactated 500 ML IVC SCH (13:45)
[2020-10-17] MEDS: Insulin LISPRO 300 UNITS/3 ML VIAL SUBQ SCH ×9 (00:20→21:03)
[2020-10-17] MEDS: Piperacillin/Tazobactam 3.375 GM in 0.9 % Sodium Chloride Mini Bag 100 ML IVPB SCH ×3 (01:19→16:35)
[2020-10-17] MEDS: *HR* HYDROmorphone (PF) 1 MG/ML SYRINGE IVP PRN ×2 (01:55→09:41)
[2020-10-17] MEDS: *HR* Heparin 5,000 UNIT/ML VIAL SQ SCH ×3 (04:55→22:01)
[2020-10-17 06:39] LABS: Basophils % 0.1 %; Eosinophils % 0.2 %; Hematocrit 34.3 % (35.3-44.9); Hemoglobin 10.3 g/dL (11.5-15.4); Immature Granulocytes % 0.8 % (0-4); Lymphocytes # 1.7 K/mcL (0.6-4.6); Mean Corpuscular Hemoglobin 25.8 pg (28.0-33.3); Mean Corpuscular Volume 85.8 fL (83.0-100.0); Mean Platelet Volume 9.8 fL (9.4-12.4); Monocytes # 0.6 K/mcL (0.0-1.3); Monocytes % 6.1 %; Neutrophils # 6.8 K/mcL (1.6-8.9); Platelet Count 401 K/mcL (140-400); Red Cell Distribution Width 13.9 % (11.5-14.5); Segmented Neutrophils % 73.8 %; White Blood Count 9.2 K/mcL (4.3-11.1)
[2020-10-17 07:03] LABS: Calcium 8.7 mg/dL (8.6-10.3); Phosphorous 3.9 mg/dL (2.7-4.5); Potassium 4.5 mEq/L (3.5-5.1)
[2020-10-17] MEDS ORDERED: 0.9 % Sodium Chloride 500 ML IVC SCH (07:30)
[2020-10-17] MEDS: Insulin DETEMIR 100 UNIT/ML X5UNITS SUBQ SCH ×2 (09:36→21:59)
[2020-10-17] MEDS: Gabapentin 300 MG CAPSULE PO SCH ×2 (09:36→22:01)
[2020-10-17] MEDS ORDERED: Vancomycin 500 MG in 0.9 % Sodium Chloride Mini Bag 100 ML IVPB ONE (10:00)
[2020-10-18] MEDS: Piperacillin/Tazobactam 3.375 GM in 0.9 % Sodium Chloride Mini Bag 100 ML IVPB SCH ×3 (01:18→16:45)
[2020-10-18] MEDS: *HR* HYDROmorphone (PF) 1 MG/ML SYRINGE IVP PRN ×2 (03:30→16:48)
[2020-10-18] MEDS: *HR* Heparin 5,000 UNIT/ML VIAL SQ SCH ×2 (05:05→16:46)
[2020-10-18 07:45] LABS: Calcium 8.4 mg/dL (8.6-10.3); Magnesium 1.8 mg/dL (1.6-2.6); Phosphorous 4.3 mg/dL (2.7-4.5); Potassium 4.6 mEq/L (3.5-5.1)
[2020-10-18] MEDS: Insulin LISPRO 300 UNITS/3 ML VIAL SUBQ SCH ×7 (08:37→21:00)
[2020-10-18] MEDS: Gabapentin 300 MG CAPSULE PO SCH (08:38)
[2020-10-18] MEDS: Insulin DETEMIR 100 UNIT/ML X5UNITS SUBQ SCH ×2 (08:38→21:00)
[2020-10-18] MEDS: Nicotine 14 MG PATCH.TD24 TD SCH (08:39)
[2020-10-18 16:50] LABS: Potassium,Urine 14.5 mEq/L; Sodium, Urine 75.9 mEq/L
[2020-10-18 17:00] LABS: Protein/Creatinine Ratio,Urine 0.5 mg/mg (0.00-0.20)
[2020-10-18 17:26] LABS: Uric Acid 4.8 mg/dL (2.3-7.6)
[2020-10-19] MEDS: Insulin LISPRO 300 UNITS/3 ML VIAL SUBQ SCH ×8 (01:09→20:18)
[2020-10-19] MEDS: Piperacillin/Tazobactam 3.375 GM in 0.9 % Sodium Chloride Mini Bag 100 ML IVPB SCH ×4 (01:11→23:50)
[2020-10-19 03:32] LABS: Hematocrit 32.1 % (35.3-44.9); Hemoglobin 9.9 g/dL (11.5-15.4)
[2020-10-19 03:55] LABS: Calcium 8.1 mg/dL (8.6-10.3); Magnesium 1.8 mg/dL (1.6-2.6); Potassium 4.5 mEq/L (3.5-5.1)
[2020-10-19] MEDS: *HR* Heparin 5,000 UNIT/ML VIAL SQ SCH ×2 (06:15→17:17)
[2020-10-19] MEDS ORDERED: Aspirin Enteric Coated 81 MG Tablet PO SCH (09:00)
[2020-10-19] MEDS ORDERED: Gabapentin 300 MG CAPSULE PO SCH (09:00)
[2020-10-19] MEDS: Insulin DETEMIR 100 UNIT/ML X5UNITS SUBQ SCH ×2 (10:03→20:19)
[2020-10-19] MEDS: Nicotine 14 MG PATCH.TD24 TD SCH (10:04)
[2020-10-19] MEDS ORDERED: Sennosides/Docusate Sodium TABLET PO PRN ×2 (10:41→19:40)
[2020-10-19] MEDS ORDERED: *HR* Midazolam HCl 2 MG/2 ML VIAL ONE (15:53)
[2020-10-19] MEDS ORDERED: *HR* FentaNYL (PF) 100 MCG/2 ML VIAL ONE ×2 (15:53→17:05)
[2020-10-19] MEDS ORDERED: Lidocaine -MPF 1% 5 ML AMPUL ONE (15:59)
[2020-10-19] MEDS ORDERED: Lidocaine -MPF 4% 5 ML AMPUL ONE (15:59)
[2020-10-19] MEDS ORDERED: Ropivacaine/PF 0.5% 30 ML VIAL ONE (16:00)
[2020-10-19] MEDS ORDERED: Lidocaine -MPF 2% 5 ML VIAL ONE (16:00)
[2020-10-19] MEDS ORDERED: Ondansetron 4 MG/2 ML VIAL ONE (16:02)
[2020-10-19] MEDS ORDERED: *HR* Propofol 200 MG/20 ML VIAL IVP ONE (16:02)
[2020-10-19] MEDS ORDERED: Lidocaine -MPF 2% 2 ML VIAL ONE (16:02)
[2020-10-19] MEDS ORDERED: Dexamethasone 4 MG/ML VIAL ONE (16:02)
[2020-10-19] MEDS ORDERED: ceFAZolin 1,000 MG, Sodium Chloride IRRigation 1,000 ML IR ONE (16:25)
[2020-10-19] MEDS ORDERED: *HR* PHENYLEPHRINE 1,000 MCG/10 ML SYRINGE IVP ONE (17:08)
[2020-10-19] MEDS ORDERED: Morphine Sulfate 2 MG/ML SYRINGE IVP PRN ×2 (17:50→19:40)
[2020-10-19] MEDS ORDERED: *HR* OxyCODONE Immed Rel 5 MG TABLET PO PRN ×2 (17:50→19:40)
[2020-10-19] MEDS ORDERED: Dextrose Gel 15 GM/37.5 ML TUBE PO PRN ×2 (19:40)
[2020-10-19] MEDS ORDERED: *HR* Dextrose 50 % in Water (Vial) 50 ML VIAL IVP PRN (19:40)
[2020-10-19] MEDS ORDERED: D5% in Water 1,000 ML IVC PRN (19:40)
[2020-10-19] MEDS ORDERED: Naloxone 0.4 MG/ML INJ IVP PRN (19:40)
[2020-10-20] MEDS: *HR* HYDROmorphone (PF) 1 MG/ML SYRINGE IVP PRN ×5 (02:12→22:45)
[2020-10-20] MEDS: *HR* Heparin 5,000 UNIT/ML VIAL SQ SCH ×2 (05:05→17:06)
[2020-10-20 08:00] LABS: Basophils % 0.1 %; Hematocrit 32.5 % (35.3-44.9); Hemoglobin 9.6 g/dL (11.5-15.4); Immature Granulocytes % 0.7 % (0-4); Lymphocytes # 0.7 K/mcL (0.6-4.6); Lymphocytes % 7.2 %; Mean Corpuscular HGB Conc 29.5 g/dL (31.6-35.5); Mean Corpuscular Hemoglobin 25.6 pg (28.0-33.3); Mean Corpuscular Volume 86.7 fL (83.0-100.0); Mean Platelet Volume 9.6 fL (9.4-12.4); Monocytes # 0.1 K/mcL (0.0-1.3); Monocytes % 1.2 %; Neutrophils # 8.6 K/mcL (1.6-8.9); Platelet Count 428 K/mcL (140-400); Red Blood Count 3.75 M/mcL (3.82-4.97); Red Cell Distribution Width 14.3 % (11.5-14.5); Segmented Neutrophils % 90.8 %; White Blood Count 9.5 K/mcL (4.3-11.1)
[2020-10-20] MEDS: Aspirin Enteric Coated 81 MG Tablet PO SCH (08:08)
[2020-10-20] MEDS: Gabapentin 300 MG CAPSULE PO SCH (08:09)
[2020-10-20] MEDS: Insulin LISPRO 300 UNITS/3 ML VIAL SUBQ SCH ×7 (08:21→22:47)
[2020-10-20] MEDS: Insulin DETEMIR 100 UNIT/ML X5UNITS SUBQ SCH ×2 (08:23→22:48)
[2020-10-20] MEDS: Piperacillin/Tazobactam 3.375 GM in 0.9 % Sodium Chloride Mini Bag 100 ML IVPB SCH (08:24)
[2020-10-20] MEDS: Nicotine 14 MG PATCH.TD24 TD SCH (08:26)
[2020-10-20] MEDS ORDERED: lisinopriL 5 MG TABLET PO SCH (09:00)
[2020-10-20 09:04] LABS: Calcium 7.7 mg/dL (8.6-10.3); Magnesium 1.5 mg/dL (1.6-2.6); Phosphorous 5.4 mg/dL (2.7-4.5); Potassium 4.7 mEq/L (3.5-5.1)
[2020-10-20] MEDS ORDERED: Vancomycin 500 MG in 0.9 % Sodium Chloride Mini Bag 100 ML IVPB ONE (11:00)
[2020-10-21] MEDS: *HR* HYDROmorphone (PF) 1 MG/ML SYRINGE IVP PRN ×3 (01:41→09:00)
[2020-10-21] MEDS: *HR* Heparin 5,000 UNIT/ML VIAL SQ SCH ×2 (04:59→18:19)
[2020-10-21 05:35] LABS: Hematocrit 29.8 % (35.3-44.9); Hemoglobin 9.3 g/dL (11.5-15.4); Mean Corpuscular HGB Conc 31.2 g/dL (31.6-35.5); Mean Corpuscular Hemoglobin 26.2 pg (28.0-33.3); Mean Corpuscular Volume 83.9 fL (83.0-100.0); Mean Platelet Volume 9.1 fL (9.4-12.4); Platelet Count 464 K/mcL (140-400); Red Blood Count 3.55 M/mcL (3.82-4.97); Red Cell Distribution Width 14.3 % (11.5-14.5); White Blood Count 10.5 K/mcL (4.3-11.1)
[2020-10-21 07:19] LABS: Calcium 8.2 mg/dL (8.6-10.3); Magnesium 1.9 mg/dL (1.6-2.6); Potassium 4.3 mEq/L (3.5-5.1)
[2020-10-21] MEDS: Insulin LISPRO 300 UNITS/3 ML VIAL SUBQ SCH ×7 (08:55→20:48)
[2020-10-21] MEDS ORDERED: cefTRIAXone 2,000 MG in Water for inj. (sterile) 20 ML IVP SCH (09:00)
[2020-10-21] MEDS: Gabapentin 300 MG CAPSULE PO SCH (09:04)
[2020-10-21] MEDS: Nicotine 14 MG PATCH.TD24 TD SCH (09:04)
[2020-10-21] MEDS: Insulin DETEMIR 100 UNIT/ML X5UNITS SUBQ SCH ×2 (09:04→20:54)
[2020-10-21] MEDS: Aspirin Enteric Coated 81 MG Tablet PO SCH (09:04)
[2020-10-21] MEDS: *HR* HYDROmorphone 2 MG TABLET PO PRN ×2 (11:56→20:05)
[2020-10-22 01:11] LABS: Calcium 8.6 mg/dL (8.6-10.3); Potassium 4.2 mEq/L (3.5-5.1)
[2020-10-22] MEDS: *HR* HYDROmorphone 2 MG TABLET PO PRN ×2 (03:22→09:00)
[2020-10-22] MEDS: *HR* Heparin 5,000 UNIT/ML VIAL SQ SCH (05:28)
[2020-10-22] MEDS: Insulin LISPRO 300 UNITS/3 ML VIAL SUBQ SCH ×2 (07:38→09:04)
[2020-10-22] MEDS: Aspirin Enteric Coated 81 MG Tablet PO SCH (09:00)
[2020-10-22] MEDS: Gabapentin 300 MG CAPSULE PO SCH (09:00)
[2020-10-22] MEDS: Nicotine 14 MG PATCH.TD24 TD SCH (09:01)
[2020-10-22] MEDS: Insulin DETEMIR 100 UNIT/ML X5UNITS SUBQ SCH (09:05)
[2020-10-22 10:27] VITALS: BP 145/81
== END 2020-10-22 11:38 | DRG 853 ==
LOC: CDU 19:30 → EMEROOARM 19:30 → 3ANU 10-13 06:12 → SUATTDRO 10-13 07:49
PROVIDERS: ADMIT Internal Medicine; ATTEND Internal Medicine

== ENCOUNTER 2021-10-18 21:46 | Inpatient (IN) ==
[2021-10-18] MEDS ORDERED: 0.9 % Sodium Chloride 1,000 ML IVC ONE (22:15)
[2021-10-18 22:25] LABS: Basophils # 0.1 K/mcL (0.0-0.2); Basophils % 0.5 %; Eosinophils # 0.5 K/mcL (0.0-0.6); Eosinophils % 3.6 %; Immature Granulocytes % 0.3 % (0-4); Mean Corpuscular Hemoglobin 30.2 pg (28.0-33.3); Mean Corpuscular Volume 88.7 fL (83.0-100.0); Mean Platelet Volume 9.6 fL (9.4-12.4); Monocytes # 0.6 K/mcL (0.0-1.3); Monocytes % 4.7 %; Neutrophils # 10.3 K/mcL (1.6-8.9); Platelet Count 267 K/mcL (140-400); Red Cell Distribution Width 14.3 % (11.5-14.5); Segmented Neutrophils % 75.9 %; White Blood Count 13.5 K/mcL (4.3-11.1)
[2021-10-18 22:50] LABS: Bacteria,Urine Few per hpf (None-Few); Bilirubin,Urine Negative (Negative); Blood,Urine Large (Negative); Clarity,Urine Turbid (Clear); Color,Urine Yellow (Yellow); Glucose,Urine (UA) >=1000 mg/dL (Normal); Ketones,Urine Negative (Negative); Leukocyte Esterase,Urine Small (Negative); Mucus,Urine Few per lpf (None-Few); Nitrite,Urine Negative (Negative); PH,Urine 6.5 pH Units (5.0-8.0); Protein,Urine 200 mg/dL (Neg-Trace); RBC,Urine TNTC per hpf (0-3); Squamous Epithelial Cell,Urine Few per hpf (None-Few); Urobilinogen,Urine >=8.0 mg/dL (Normal); WBC,Urine 50-100 per hpf (0-3)
[2021-10-18 22:51] LABS: Alanine Aminotransferase 3 Units/L (7-52); Albumin 3.7 g/dL (3.5-5.7); Albumin/Globulin Ratio 0.9 (1.1-2.2); Alkaline Phosphatase 69 Units/L (34-104); Aspartate Amino Transferase 16 Units/L (13-39); BUN/Creatinine Ratio 33 (6-26); Bilirubin,Direct 0.1 mg/dL (0.0-0.2); Bilirubin,Indirect 1.2 mg/dL (0.0-1.0); Bilirubin,Total 1.3 mg/dL (0.3-1.0); Blood Urea Nitrogen 16 mg/dL (8-23); Calcium 9.6 mg/dL (8.6-10.3); Carbon Dioxide 26 mEq/L (23-29); Chloride 100 mEq/L (98-107); Creatine Kinase 31 Units/L (30-223); Globulin 4.2 g/dL (2.4-3.5); Glucose 272 mg/dL (70-105); Osmolality,Calculated 293 (280-300); Potassium 4.2 mEq/L (3.5-5.1); Sodium 136 mEq/L (136-145); Total Protein 7.9 g/dL (6.4-8.9); Troponin I 0.08 ng/mL (< 0.04); eGFR For African Americans > 60 (> 60); eGFR For Non-African Americans > 60 (> 60)
[2021-10-18] MEDS ORDERED: cefTRIAXone 1,000 MG in 0.9 % Sodium Chloride 10 ML IVP ONE (22:52)
[2021-10-18 23:01] LABS: Amphetamine Screen,Urine Negative ng/mL (Cutoff=1000); Barbiturate Screen,Urine Negative ng/mL (Cutoff=200); Benzodiazepines Screen,Urine Negative ng/mL (Cutoff=200); Cannabinoid Screen,Urine Negative ng/mL (Cutoff = 50); Cocaine Screen,Urine Negative ng/mL (Cutoff= 300); Opiate Screen,Urine Negative ng/mL (Cutoff=300); Phencyclidine Screen,Urine Negative ng/mL (Cutoff=25)
[2021-10-18] MEDS ORDERED: 0.9 % Sodium Chloride 1,000 ML IVC SCH (23:45)
[2021-10-18] MEDS ORDERED: Melatonin 3 MG TABLET PO PRN (23:49)
[2021-10-18] MEDS ORDERED: Naloxone 0.4 MG/ML INJ IVP PRN (23:49)
[2021-10-18] MEDS ORDERED: Ondansetron 4 MG/2 ML VIAL IVP PRN (23:49)
[2021-10-18] MEDS ORDERED: *HR* Dextrose 50 % in Water (Syg) 50 ML SYRINGE IVP PRN (23:53)
[2021-10-18] MEDS ORDERED: Dextrose 4 GM Chewable Tablets PO PRN ×2 (23:53)
[2021-10-18] MEDS ORDERED: D5% in Water 1,000 ML IVC PRN (23:53)
[2021-10-19] MEDS: Insulin LISPRO 300 UNITS/3 ML VIAL SUBQ SCH ×4 (02:10→18:08)
[2021-10-19 04:17] LABS: Hematocrit 39.2 % (35.3-44.9); Mean Corpuscular HGB Conc 34.4 g/dL (31.6-35.5); Mean Corpuscular Hemoglobin 30.1 pg (28.0-33.3); Mean Corpuscular Volume 87.5 fL (83.0-100.0); Mean Platelet Volume 9.7 fL (9.4-12.4); Platelet Count 247 K/mcL (140-400); Red Blood Count 4.48 M/mcL (3.82-4.97); Red Cell Distribution Width 14.3 % (11.5-14.5); White Blood Count 12.6 K/mcL (4.3-11.1)
[2021-10-19 04:21] LABS: Hemoglobin 13.5 g/dL (11.5-15.4)
[2021-10-19 04:42] LABS: Troponin I 0.06 ng/mL (< 0.04)
[2021-10-19 04:58] LABS: BUN/Creatinine Ratio 40 (6-26); Blood Urea Nitrogen 14 mg/dL (8-23); Calcium 8.5 mg/dL (8.6-10.3); Carbon Dioxide 25 mEq/L (23-29); Chloride 105 mEq/L (98-107); Glucose 237 mg/dL (70-105); Osmolality,Calculated 296 (280-300); Potassium 3.5 mEq/L (3.5-5.1); Sodium 139 mEq/L (136-145); eGFR For African Americans > 60 (> 60); eGFR For Non-African Americans > 60 (> 60)
[2021-10-19 14:50] LABS: Folate 5.1 ng/mL (3.0-16.0)
[2021-10-19] MEDS ORDERED: cefTRIAXone 1,000 MG in 0.9 % Sodium Chloride Mini Bag 100 ML IVPB SCH (23:00)
[2021-10-20 04:43] LABS: Basophils # 0.1 K/mcL (0.0-0.2); Basophils % 0.6 %; Eosinophils # 0.5 K/mcL (0.0-0.6); Eosinophils % 5.7 %; Hematocrit 38.8 % (35.3-44.9); Immature Granulocytes % 0.2 % (0-4); Lymphocytes # 4.3 K/mcL (0.6-4.6); Lymphocytes % 47.4 %; Mean Corpuscular HGB Conc 33.5 g/dL (31.6-35.5); Mean Corpuscular Hemoglobin 29.1 pg (28.0-33.3); Mean Platelet Volume 9.7 fL (9.4-12.4); Monocytes # 0.4 K/mcL (0.0-1.3); Monocytes % 4.8 %; Neutrophils # 3.8 K/mcL (1.6-8.9); Platelet Count 223 K/mcL (140-400); Red Blood Count 4.46 M/mcL (3.82-4.97); Red Cell Distribution Width 14.4 % (11.5-14.5); Segmented Neutrophils % 41.3 %; White Blood Count 9.1 K/mcL (4.3-11.1)
[2021-10-20 06:22] LABS: Alanine Aminotransferase 4 Units/L (7-52); Albumin 3.2 g/dL (3.5-5.7); Albumin/Globulin Ratio 1.1 (1.1-2.2); Alkaline Phosphatase 57 Units/L (34-104); Aspartate Amino Transferase 9 Units/L (13-39); BUN/Creatinine Ratio 35 (6-26); Bilirubin,Total 0.8 mg/dL (0.3-1.0); Blood Urea Nitrogen 13 mg/dL (8-23); Calcium 8.8 mg/dL (8.6-10.3); Carbon Dioxide 27 mEq/L (23-29); Chloride 103 mEq/L (98-107); Globulin 2.9 g/dL (2.4-3.5); Glucose 174 mg/dL (70-105); Osmolality,Calculated 286 (280-300); Potassium 3.3 mEq/L (3.5-5.1); Sodium 136 mEq/L (136-145); Total Protein 6.1 g/dL (6.4-8.9); eGFR For African Americans > 60 (> 60); eGFR For Non-African Americans > 60 (> 60)
[2021-10-20] MEDS: Insulin LISPRO 300 UNITS/3 ML VIAL SUBQ SCH ×3 (10:08→17:16)
[2021-10-20] MEDS: Ertapenem 1,000 MG in 0.9 % Sodium Chloride Mini Bag 100 ML IVPB SCH (12:07)
[2021-10-20] MEDS ORDERED: Permethrin Cream Rinse 60 ML LIQUID TP ONE (20:02)
[2021-10-21] MEDS ORDERED: Cyanocobalamin (B-12) 1,000 MCG/ML VIAL IM ONE (06:34)
[2021-10-21 06:57] LABS: Basophils # 0.1 K/mcL (0.0-0.2); Basophils % 0.9 %; Eosinophils # 0.5 K/mcL (0.0-0.6); Eosinophils % 6.8 %; Hematocrit 40.4 % (35.3-44.9); Hemoglobin 13.7 g/dL (11.5-15.4); Immature Granulocytes % 0.1 % (0-4); Lymphocytes # 3.7 K/mcL (0.6-4.6); Lymphocytes % 46.9 %; Mean Corpuscular HGB Conc 33.9 g/dL (31.6-35.5); Mean Corpuscular Hemoglobin 30.1 pg (28.0-33.3); Mean Corpuscular Volume 88.8 fL (83.0-100.0); Mean Platelet Volume 9.3 fL (9.4-12.4); Monocytes # 0.5 K/mcL (0.0-1.3); Monocytes % 5.9 %; Neutrophils # 3.1 K/mcL (1.6-8.9); Platelet Count 241 K/mcL (140-400); Red Blood Count 4.55 M/mcL (3.82-4.97); Red Cell Distribution Width 14.4 % (11.5-14.5); Segmented Neutrophils % 39.4 %; White Blood Count 7.9 K/mcL (4.3-11.1)
[2021-10-21 07:23] LABS: Alanine Aminotransferase < 3 Units/L (7-52); Albumin 3.4 g/dL (3.5-5.7); Albumin/Globulin Ratio 1.1 (1.1-2.2); Alkaline Phosphatase 57 Units/L (34-104); Aspartate Amino Transferase 8 Units/L (13-39); BUN/Creatinine Ratio 37 (6-26); Bilirubin,Total 0.8 mg/dL (0.3-1.0); Blood Urea Nitrogen 16 mg/dL (8-23); Calcium 9.3 mg/dL (8.6-10.3); Carbon Dioxide 27 mEq/L (23-29); Chloride 103 mEq/L (98-107); Glucose 206 mg/dL (70-105); Osmolality,Calculated 287 (280-300); Potassium 3.5 mEq/L (3.5-5.1); Sodium 135 mEq/L (136-145); Total Protein 6.4 g/dL (6.4-8.9); eGFR For African Americans > 60 (> 60); eGFR For Non-African Americans > 60 (> 60)
[2021-10-21] MEDS: Ertapenem 1,000 MG in 0.9 % Sodium Chloride Mini Bag 100 ML IVPB SCH (08:21)
[2021-10-21] MEDS: Insulin LISPRO 300 UNITS/3 ML VIAL SUBQ SCH ×3 (08:33→16:35)
[2021-10-21] MEDS: Cyanocobalamin (B-12) 1,000 MCG TABLET PO SCH (08:33)
[2021-10-22 01:06] LABS: Basophils # 0.1 K/mcL (0.0-0.2); Basophils % 0.8 %; Eosinophils # 0.4 K/mcL (0.0-0.6); Eosinophils % 5.5 %; Hematocrit 40.7 % (35.3-44.9); Hemoglobin 14.1 g/dL (11.5-15.4); Immature Granulocytes % 0.3 % (0-4); Lymphocytes # 3.7 K/mcL (0.6-4.6); Lymphocytes % 46.3 %; Mean Corpuscular HGB Conc 34.6 g/dL (31.6-35.5); Mean Corpuscular Hemoglobin 29.9 pg (28.0-33.3); Mean Corpuscular Volume 86.2 fL (83.0-100.0); Mean Platelet Volume 9.6 fL (9.4-12.4); Monocytes # 0.4 K/mcL (0.0-1.3); Monocytes % 4.9 %; Neutrophils # 3.4 K/mcL (1.6-8.9); Platelet Count 253 K/mcL (140-400); Red Blood Count 4.72 M/mcL (3.82-4.97); Red Cell Distribution Width 14.3 % (11.5-14.5); Segmented Neutrophils % 42.2 %; White Blood Count 7.9 K/mcL (4.3-11.1)
[2021-10-22 01:24] LABS: Alanine Aminotransferase 4 Units/L (7-52); Albumin 3.3 g/dL (3.5-5.7); Alkaline Phosphatase 50 Units/L (34-104); Aspartate Amino Transferase 9 Units/L (13-39); BUN/Creatinine Ratio 45 (6-26); Bilirubin,Total 0.8 mg/dL (0.3-1.0); Blood Urea Nitrogen 20 mg/dL (8-23); Calcium 9.4 mg/dL (8.6-10.3); Carbon Dioxide 26 mEq/L (23-29); Chloride 101 mEq/L (98-107); Globulin 3.3 g/dL (2.4-3.5); Glucose 157 mg/dL (70-105); Osmolality,Calculated 282 (280-300); Potassium 4.2 mEq/L (3.5-5.1); Sodium 133 mEq/L (136-145); Total Protein 6.6 g/dL (6.4-8.9); eGFR For African Americans > 60 (> 60); eGFR For Non-African Americans > 60 (> 60)
[2021-10-22] MEDS: Insulin LISPRO 300 UNITS/3 ML VIAL SUBQ SCH ×3 (08:40→17:54)
[2021-10-22] MEDS: Cyanocobalamin (B-12) 1,000 MCG TABLET PO SCH (08:40)
[2021-10-22] MEDS: Ertapenem 1,000 MG in 0.9 % Sodium Chloride Mini Bag 100 ML IVPB SCH (08:41)
[2021-10-22] MEDS ORDERED: Permethrin Cream Rinse 60 ML LIQUID TP ONE (11:21)
[2021-10-23 08:53] LABS: Hematocrit 43.1 % (35.3-44.9); Hemoglobin 14.9 g/dL (11.5-15.4); Mean Corpuscular HGB Conc 34.6 g/dL (31.6-35.5); Mean Corpuscular Hemoglobin 29.9 pg (28.0-33.3); Mean Corpuscular Volume 86.4 fL (83.0-100.0); Mean Platelet Volume 9.5 fL (9.4-12.4); Platelet Count 264 K/mcL (140-400); Red Blood Count 4.99 M/mcL (3.82-4.97); Red Cell Distribution Width 14.3 % (11.5-14.5); White Blood Count 7.9 K/mcL (4.3-11.1)
[2021-10-23] MEDS: Insulin LISPRO 300 UNITS/3 ML VIAL SUBQ SCH ×3 (08:55→17:17)
[2021-10-23] MEDS: Ertapenem 1,000 MG in 0.9 % Sodium Chloride Mini Bag 100 ML IVPB SCH (08:55)
[2021-10-23] MEDS: Cyanocobalamin (B-12) 1,000 MCG TABLET PO SCH (08:56)
[2021-10-23 09:16] LABS: BUN/Creatinine Ratio 50 (6-26); Blood Urea Nitrogen 22 mg/dL (8-23); Calcium 9.5 mg/dL (8.6-10.3); Carbon Dioxide 25 mEq/L (23-29); Chloride 101 mEq/L (98-107); Glucose 187 mg/dL (70-105); Osmolality,Calculated 284 (280-300); Potassium 4.1 mEq/L (3.5-5.1); Sodium 133 mEq/L (136-145); eGFR For African Americans > 60 (> 60); eGFR For Non-African Americans > 60 (> 60)
[2021-10-24 03:30] LABS: Hematocrit 42.1 % (35.3-44.9); Hemoglobin 14.5 g/dL (11.5-15.4); Mean Corpuscular HGB Conc 34.4 g/dL (31.6-35.5); Mean Corpuscular Hemoglobin 30.3 pg (28.0-33.3); Mean Corpuscular Volume 88.1 fL (83.0-100.0); Mean Platelet Volume 9.6 fL (9.4-12.4); Platelet Count 265 K/mcL (140-400); Red Blood Count 4.78 M/mcL (3.82-4.97); Red Cell Distribution Width 13.7 % (11.5-14.5)
[2021-10-24 03:52] LABS: BUN/Creatinine Ratio 44 (6-26); Blood Urea Nitrogen 24 mg/dL (8-23); Carbon Dioxide 25 mEq/L (23-29); Chloride 99 mEq/L (98-107); Glucose 231 mg/dL (70-105); Osmolality,Calculated 285 (280-300); Potassium 3.8 mEq/L (3.5-5.1); Sodium 132 mEq/L (136-145); eGFR For African Americans > 60 (> 60); eGFR For Non-African Americans > 60 (> 60)
[2021-10-24] MEDS: Insulin LISPRO 300 UNITS/3 ML VIAL SUBQ SCH ×3 (08:38→16:38)
[2021-10-24] MEDS: Cyanocobalamin (B-12) 1,000 MCG TABLET PO SCH (08:39)
[2021-10-24] MEDS: Ertapenem 1,000 MG in 0.9 % Sodium Chloride Mini Bag 100 ML IVPB SCH (08:41)
[2021-10-25 02:24] LABS: Hematocrit 41.2 % (35.3-44.9); Hemoglobin 14.3 g/dL (11.5-15.4); Mean Corpuscular HGB Conc 34.7 g/dL (31.6-35.5); Mean Corpuscular Volume 86.6 fL (83.0-100.0); Mean Platelet Volume 9.4 fL (9.4-12.4); Platelet Count 248 K/mcL (140-400); Red Blood Count 4.76 M/mcL (3.82-4.97); Red Cell Distribution Width 14.1 % (11.5-14.5); White Blood Count 8.4 K/mcL (4.3-11.1)
[2021-10-25 02:39] LABS: BUN/Creatinine Ratio 47 (6-26); Blood Urea Nitrogen 25 mg/dL (8-23); Calcium 9.1 mg/dL (8.6-10.3); Carbon Dioxide 25 mEq/L (23-29); Chloride 102 mEq/L (98-107); Glucose 148 mg/dL (70-105); Osmolality,Calculated 285 (280-300); Potassium 3.9 mEq/L (3.5-5.1); Sodium 134 mEq/L (136-145); eGFR For African Americans > 60 (> 60); eGFR For Non-African Americans > 60 (> 60)
[2021-10-25] MEDS: Cyanocobalamin (B-12) 1,000 MCG TABLET PO SCH (09:16)
[2021-10-25] MEDS: Ertapenem 1,000 MG in 0.9 % Sodium Chloride Mini Bag 100 ML IVPB SCH (09:16)
[2021-10-25] MEDS: Insulin LISPRO 300 UNITS/3 ML VIAL SUBQ SCH ×3 (09:27→17:14)
[2021-10-26] MEDS: Insulin LISPRO 300 UNITS/3 ML VIAL SUBQ SCH ×3 (08:22→17:19)
[2021-10-26] MEDS: Cyanocobalamin (B-12) 1,000 MCG TABLET PO SCH (08:23)
[2021-10-26] MEDS: Ertapenem 1,000 MG in 0.9 % Sodium Chloride Mini Bag 100 ML IVPB SCH (08:23)
[2021-10-26] MEDS: *HR* Heparin 5,000 UNIT/ML VIAL SQ SCH (17:19)
[2021-10-26] MEDS: Gabapentin 400 MG CAPSULE PO SCH ×2 (17:33→21:56)
[2021-10-26] MEDS: Insulin DETEMIR 100 UNIT/ML X5UNITS SUBQ SCH (21:56)
[2021-10-27] MEDS: *HR* Heparin 5,000 UNIT/ML VIAL SQ SCH ×2 (05:33→17:31)
[2021-10-27] MEDS: Ertapenem 1,000 MG in 0.9 % Sodium Chloride Mini Bag 100 ML IVPB SCH (08:33)
[2021-10-27] MEDS: Gabapentin 400 MG CAPSULE PO SCH ×3 (08:35→22:24)
[2021-10-27] MEDS: Cyanocobalamin (B-12) 1,000 MCG TABLET PO SCH (08:36)
[2021-10-27] MEDS: Insulin LISPRO 300 UNITS/3 ML VIAL SUBQ SCH ×3 (08:39→17:25)
[2021-10-27 10:01] LABS: Amphetamine Screen,Urine Negative ng/mL (Cutoff=1000); Barbiturate Screen,Urine Negative ng/mL (Cutoff=200); Benzodiazepines Screen,Urine Negative ng/mL (Cutoff=200); Cannabinoid Screen,Urine Negative ng/mL (Cutoff = 50); Cocaine Screen,Urine Negative ng/mL (Cutoff= 300); Opiate Screen,Urine Negative ng/mL (Cutoff=300); Phencyclidine Screen,Urine Negative ng/mL (Cutoff=25)
[2021-10-27] MEDS ORDERED: 0.9 % Sodium Chloride 1,000 ML IVC ONE ×2 (20:06→22:59)
[2021-10-27] MEDS: Insulin DETEMIR 100 UNIT/ML X5UNITS SUBQ SCH (22:24)
[2021-10-28] MEDS: *HR* Heparin 5,000 UNIT/ML VIAL SQ SCH ×2 (06:19→17:01)
[2021-10-28] MEDS: Insulin LISPRO 300 UNITS/3 ML VIAL SUBQ SCH ×3 (08:08→17:10)
[2021-10-28] MEDS: Ertapenem 1,000 MG in 0.9 % Sodium Chloride Mini Bag 100 ML IVPB SCH (08:10)
[2021-10-28] MEDS: Gabapentin 400 MG CAPSULE PO SCH ×3 (08:11→20:21)
[2021-10-28] MEDS: Cyanocobalamin (B-12) 1,000 MCG TABLET PO SCH (08:12)
[2021-10-28] MEDS: Insulin DETEMIR 100 UNIT/ML X5UNITS SUBQ SCH (21:12)
[2021-10-29] MEDS: *HR* Heparin 5,000 UNIT/ML VIAL SQ SCH ×2 (06:15→16:27)
[2021-10-29] MEDS: Insulin LISPRO 300 UNITS/3 ML VIAL SUBQ SCH ×3 (07:44→17:51)
[2021-10-29] MEDS: Ertapenem 1,000 MG in 0.9 % Sodium Chloride Mini Bag 100 ML IVPB SCH (09:17)
[2021-10-29] MEDS: Cyanocobalamin (B-12) 1,000 MCG TABLET PO SCH (09:17)
[2021-10-29] MEDS: Gabapentin 400 MG CAPSULE PO SCH ×3 (09:17→19:37)
[2021-10-29] MEDS: Insulin DETEMIR 100 UNIT/ML X5UNITS SUBQ SCH (20:59)
[2021-10-30] MEDS: *HR* Heparin 5,000 UNIT/ML VIAL SQ SCH (06:28)
[2021-10-30 06:29] LABS: Basophils # 0.1 K/mcL (0.0-0.2); Basophils % 0.7 %; Eosinophils # 0.4 K/mcL (0.0-0.6); Eosinophils % 5.8 %; Hematocrit 39.6 % (35.3-44.9); Hemoglobin 13.6 g/dL (11.5-15.4); Immature Granulocytes % 0.1 % (0-4); Lymphocytes # 3.6 K/mcL (0.6-4.6); Mean Corpuscular HGB Conc 34.3 g/dL (31.6-35.5); Mean Corpuscular Hemoglobin 30.2 pg (28.0-33.3); Mean Platelet Volume 9.7 fL (9.4-12.4); Monocytes # 0.4 K/mcL (0.0-1.3); Monocytes % 5.6 %; Neutrophils # 2.7 K/mcL (1.6-8.9); Platelet Count 229 K/mcL (140-400); Red Cell Distribution Width 13.5 % (11.5-14.5); Segmented Neutrophils % 37.8 %; White Blood Count 7.3 K/mcL (4.3-11.1)
[2021-10-30 06:32] LABS: BUN/Creatinine Ratio 33 (6-26); Blood Urea Nitrogen 14 mg/dL (8-23); Calcium 9.2 mg/dL (8.6-10.3); Carbon Dioxide 25 mEq/L (23-29); Chloride 103 mEq/L (98-107); Glucose 158 mg/dL (70-105); Magnesium 1.6 mg/dL (1.6-2.6); Osmolality,Calculated 284 (280-300); Phosphorous 3.3 mg/dL (2.7-4.5); Potassium 3.9 mEq/L (3.5-5.1); Sodium 135 mEq/L (136-145); eGFR For African Americans > 60 (> 60); eGFR For Non-African Americans > 60 (> 60)
[2021-10-30 07:08] VITALS: BP 104/65; PULSE 68; TEMP 97.6; O2SAT 95
[2021-10-30] MEDS: Ertapenem 1,000 MG in 0.9 % Sodium Chloride Mini Bag 100 ML IVPB SCH (08:12)
[2021-10-30] MEDS: Insulin LISPRO 300 UNITS/3 ML VIAL SUBQ SCH (08:13)
[2021-10-30] MEDS: Gabapentin 400 MG CAPSULE PO SCH (08:13)
[2021-10-30] MEDS: Cyanocobalamin (B-12) 1,000 MCG TABLET PO SCH (08:13)
== END 2021-10-30 14:05 | disposition home or self-care (01) | DRG 871 ==
LOC: 3BNU 21:46 → EMEROOARM 21:46 → 3BNU 10-19 00:50 → SUATTDRO 10-20 14:03 → 3BNU 10-27 13:08
PROVIDERS: ADMIT Nurse Practitioner; ATTEND Internal Medicine